=== PATIENT | female | born 1965 | race Caucasian/White ===

== ENCOUNTER 2017-01-06 12:11 | Observation (INO) ==
[2017-01-06 12:25] LABS: Basophils % 0.4 %; Eosinophils # 0.1 K/mcL (0.0-0.6); Eosinophils % 0.6 %; Hematocrit 46.8 % (35.3-44.9); Hemoglobin 16.6 g/dL (11.5-15.4); Immature Granulocytes % 0.2 % (0-4); Lymphocytes # 2.9 K/mcL (0.6-4.6); Lymphocytes % 27.5 %; Mean Corpuscular HGB Conc 35.5 g/dL (31.6-35.5); Mean Corpuscular Hemoglobin 32.8 pg (28.0-33.3); Mean Corpuscular Volume 92.5 fL (83.0-100.0); Mean Platelet Volume 10.3 fL (9.4-12.4); Monocytes # 0.6 K/mcL (0.0-1.3); Monocytes % 5.5 %; Platelet Count 293 K/mcL (140-400); Red Blood Count 5.06 M/mcL (3.82-4.97); Red Cell Distribution Width 12.9 % (11.5-14.5); Segmented Neutrophils % 65.8 %
[2017-01-06 12:35] LABS: Activated Partial Thrombo Time 30.5 Seconds (26.0-36.0); BUN/Creatinine Ratio 12 (6-26); Blood Urea Nitrogen 12 mg/dL (7-20); Calcium 10.3 mg/dL (8.6-10.8); Carbon Dioxide 26 mEq/L (19-29); Chloride 104 mEq/L (98-109); Glucose 134 mg/dL (70-99); INR 1.1; Osmolality,Calculated 294 (280-300); Potassium 2.9 mEq/L (3.5-4.5); Sodium 141 mEq/L (136-145); eGFR For African Americans > 60 (> 60); eGFR For Non-African Americans 60 (> 60)
[2017-01-06 12:36] LABS: Prothrombin Time 11.7 Seconds (9.4-12.1)
--- NOTE | 2017-01-06 12:37 | Emergency Department Note ---
Addendum entered and electronically signed by Eliu St DO 01/06/17 14 :15: Patient stable on reevaluation at this time. Her blood pressure improved spontaneously without any treatment. Awaiting admission to the hospitalist service. Original Note: Disposition Clinical Impression: Transient cerebral ischemia Qualifiers: Transient cerebral ischemia type: unspecified Qualified Code(s): G45.9 - Transient cerebral ischemic attack, unspecified Disposition: Admitted As Inpatient Condition: Good Time of Disposition: 13:12 Neuro HPI - General Chief Complaint: ED Neuro Symptoms/Deficit Stated Complaint: Neuro Time Seen by Provider: 01/06/17 12:19 Source: patient, EMS Mode of arrival: EMS Limitations: no limitations Nursing Notes Reviewed: Yes Vital Signs Reviewed: Yes - History of Present Illness HPI Narrative: 52-year-old female with history of alpha-1 antitrypsin patient presents for abrupt onset of right-sided weakness, difficulty with ambulation, patient, Vusion and dysarthria that began at 11 AM this morning. She was reportedly outside of her home with her daughter when she had abrupt onset of symptoms causing her daughter to lower her to the ground before she fell and hurt herself. Patient did not lose anxiousness. Prior to this, the patient felt normal. Family called 911 and medics report that on arrival the patient had significant right-sided facial droop and right upper extremity and lower 70 weakness. They state that 10-15 minutes prior to arrival, the patient began to have significant improvement in her symptoms so that they were nearly resolved by the time she arrived to the hospital. On arrival to the hospital, the patient notes that she is feeling much better. She states that her speech is nearly back to normal and that her weakness is much better and her arm and partially better in her leg. - Related Data Home Medications: Home Medications Medication Instructions Recorded Confirmed ALPRAZolam [Xanax 1 MG Tablet] 1 mg PO QID 04/03/16 04/03/16 Albuterol Neb [Proventil Neb] 2.5 mg IH TID 04/03/16 04/03/16 Albuterol Sulfate [Proair 2 puff IH Q4H PRN 04/03/16 04/03/16 Respiclick] Budesonide/Formoterol 160/4.5 2 puff IH BIDR 04/03/16 04/03/16 [Symbicort 160/4.5] Citalopram [CeleXA] 20 mg PO DAILY 04/03/16 04/03/16 Fluticasone Propionate Nasal 1 spray NS BID 04/03/16 04/03/16 [Flonase] Gabapentin [Neurontin] 400 mg PO QID 04/03/16 04/03/16 Levonorgestrel [Mirena] 52 mg IY AD 04/03/16 04/03/16 Loratadine/Pseudophed (12 HR) 1 tab PO DAILY 04/03/16 04/03/16 [Claritin D (12HR)] Omeprazole [PriLOSEC] 20 mg PO DAILY 04/03/16 04/03/16 Ondansetron ODT [Zofran ODT] 8 mg SL Q8HR PRN 04/03/16 04/03/16 Oxycodone HCl/Acetaminophen 1 tab PO Q6H PRN 04/03/16 04/03/16 [Percocet 5-325 mg Tablet] Previous Rx's Medication Instructions Recorded Docusate Sodium [Colace] 100 mg PO DAILY #15 capsule 07/06/16 Allergies/Adverse Reactions: Allergies Allergy/AdvReac Type Severity Reaction Status Date / Time No Known Allergies Allergy Verified 04/01/15 14:13 All systems ED: reviewed and negative except as stated. Past Medical History - Past Medical History Attestation: Yes The following information was validated with the patient. Source: patient Medical history: Reports: asthma, COPD, hypertension, other Surgical history: Reports: herniorrhaphy Psychiatric history: Reports: anxiety, depression [employer] history: Reports: bilateral tubal ligation - Social History Smoking Status: Former smoker Smokeless Tobacco Status: No Alcohol use: Reports: none Drug use: Reports: none Physical Exam - Head Head exam: atraumatic, normocephalic, normal inspection - Eye Eye exam: Present: normal appearance, PERRL, EOMI - ENT ENT exam: normal exam, normal oropharynx, mucous membranes moist - Neck Neck exam: Present: normal inspection, full ROM, trachea midline - Chest Chest inspection: Present: normal inspection, symmetric chest wall rise - Respiratory Respiratory exam: Clear to auscultation bilaterally without wheezes rales or rhonchi Cardiovascular Cardiovascular exam: Present: regular rate, normal rhythm, normal heart sounds - Abdominal Exam Abdominal exam: Present: soft, Non-Tender. Absent: tenderness, distention, guarding, rebound, rigidity - Extremities Exam Normal inspection. No edema. Normal distal pulses. - Back Exam Back exam: Present: normal inspection, full ROM. Absent: tenderness, CVA tenderness (R), CVA tenderness (L) - Neurological Exam Neurological exam: Present: alert, oriented X3, CN II-XII intact. Alert and nature of scale for further neuro exam. - Psychiatric Psychiatric exam: Present: normal affect, normal mood - Skin Skin exam: Present: warm, dry, intact, normal color - General Limitations: no limitations General appearance: alert Course - Reevaluation(s) Reevaluation #1: Patient's symptoms are nearly resolved at this time. She was seen by Dr. Mackenzie via tele-stroke. No indication for TPA given symptoms that are much much better at this time. EKG showed no ischemia or atrial fibrillation. Labs showed mild hypokalemia which we are repleting. CT of the head was negative. A shunt agreeable to stay for further evaluation of her suspected TIA. Accepted by Dr. Mendoza Time: 13:11 Vital Signs Temperature 0 F L 01/06/17 12:12 Pulse Rate 81 01/06/17 12:12 Respiratory Rate 18 01/06/17 12:12 Blood Pressure 192/107 01/06/17 12:12 O2 Sat by Pulse Oximetry 98 01/06/17 12:12 Temperature 0 F L 01/06/17 12:12 Pulse Rate 66 01/06/17 13:08 Respiratory Rate 18 01/06/17 13:50 Blood Pressure 148/95 01/06/17 13:50 O2 Sat by Pulse Oximetry 97 01/06/17 13:08 Oxygen Delivery Oxygen Delivery Room Air Neuro Symptoms/Deficit - Differential Diagnosis Likely: transient cerebral ischemia - Medical Records Medical records reviewed: Yes I reviewed the patient's medical records. - Lab Data Lab results reviewed: Yes I reviewed the patient's lab results. Result diagrams: 01/06/17 12:14 01/06/17 12:14 Lab Results 01/06/17 01/06/17 01/06/17 Range/Units 12:14 12:14 12:14 WBC 10.6 (4.3-11.1) K/mcL RBC 5.06 H (3.82-4.97) M/mcL Hgb 16.6 H (11.5-15.4) g/dL Hct 46.8 H (35.3-44.9) % MCV 92.5 (83.0-100.0) fL MCH 32.8 (28.0-33.3) pg MCHC 35.5 (31.6-35.5) g/dL RDW 12.9 (11.5-14.5) % Plt Count 293 (140-400) K/mcL MPV 10.3 (9.4-12.4) fL Immature Gran % 0.2 (0-4) % Seg Neutrophils % 65.8 % Lymphocytes % 27.5 % Monocytes % 5.5 % Eosinophils % 0.6 % Basophils % 0.4 % Neutrophils # 7.0 (1.6-8.9) K/mcL Lymphocytes # 2.9 (0.6-4.6) K/mcL Monocytes # 0.6 (0.0-1.3) K/mcL Eosinophils # 0.1 (0.0-0.6) K/mcL Basophils # 0.0 (0.0-0.2) K/mcL PT 11.7 (9.4-12.1) Seconds INR 1.1 APTT 30.5 (26.0-36.0) Seconds Sodium 141 (136-145) mEq/L Potassium 2.9 L (3.5-4.5) mEq/L Chloride 104 (98-109) mEq/L Carbon Dioxide 26 (19-29) mEq/L BUN 12 (7-20) mg/dL Creatinine 0.98 (0.57-1.11) mg/dL Est GFR ( Amer) > 60 (> 60) Est GFR (Non-Af Amer) 60 (> 60) BUN/Creatinine Ratio 12 (6-26) Glucose 134 H (70-99) mg/dL Calculated Osmolality 294 (280-300) Calcium 10.3 (8.6-10.8) mg/dL Magnesium 2.4 (1.6-2.6) mg/dL Troponin I (0-0.03) ng/mL 01/06/17 Range/Units 12:14 WBC (4.3-11.1) K/mcL RBC (3.82-4.97) M/mcL Hgb (11.5-15.4) g/dL Hct (35.3-44.9) % MCV (83.0-100.0) fL MCH (28.0-33.3) pg MCHC (31.6-35.5) g/dL RDW (11.5-14.5) % Plt Count (140-400) K/mcL MPV (9.4-12.4) fL Immature Gran % (0-4) % Seg Neutrophils % % Lymphocytes % % Monocytes % % Eosinophils % % Basophils % % Neutrophils # (1.6-8.9) K/mcL Lymphocytes # (0.6-4.6) K/mcL Monocytes # (0.0-1.3) K/mcL Eosinophils # (0.0-0.6) K/mcL Basophils # (0.0-0.2) K/mcL PT (9.4-12.1) Seconds INR APTT (26.0-36.0) Seconds Sodium (136-145) mEq/L Potassium (3.5-4.5) mEq/L Chloride (98-109) mEq/L Carbon Dioxide (19-29) mEq/L BUN (7-20) mg/dL Creatinine (0.57-1.11) mg/dL Est GFR ( Amer) (> 60) Est GFR (Non-Af Amer) (> 60) BUN/Creatinine Ratio (6-26) Glucose (70-99) mg/dL Calculated Osmolality (280-300) Calcium (8.6-10.8) mg/dL Magnesium (1.6-2.6) mg/dL Troponin I 0.00 (0-0.03) ng/mL - Radiology Data Radiology results reviewed: Yes I reviewed the patient's radiology results. - EKG Data EKG attestation: Yes I reviewed and interpreted this EKG. EKG results narrative: Normal sinus rhythm at 63 with normal axis and intervals. No ST elevation or depression. No pathologic Q waves. No significant change compared with 2014. NIH Stroke Scale - Level of Consciousness LOC: Alert - LOC Questions LOC Questions: Answers both correctly - LOC Commands LOC Commands: Performs both correctly - Best Gaze Best Gaze: Normal - Visual Visual: No visual loss - Facial Palsy Facial Palsy: Normal - Motor Arms Motor Arm-Left: No drift for 10 seconds Motor Arm-Right: No drift for 10 seconds - Motor Legs Motor Leg-Left: No drift for 5 seconds Motor Leg-Right: Some effort against gravity, limb drifts to bed - Limb Ataxia Limb Ataxia: Normal, No Ataxia - Sensory Sensory: Mild to moderate loss, "not as sharp" - Best Language Best Language: No aphasia - Dysarthria Dysarthria: Normal - Extinction and Inattention Extinction and Inattention: Normal - NIHSS Total Score NIHSS Total Score: 3 Critical Care Time Critical Care Time: Yes Total Critical Care Time: 30 Attestation: The high probability of a clinically significant, sudden or life threatening deterioration of the [neuro] system(s) required my full and direct attention, intervention and personal management. The aggregate critical care time was [30] minutes. This time is in addition to time spent performing reported procedures but includes the following: [X] Data Review and interpretation [X] Patient assessment and monitoring of vital signs [X] Documentation [X] Medication orders and management Attestation Statement - Attestation Attestation: I personally interviewed and examined this patient and my medical decision- making was reviewed with the Ed Resident Physician, Dr. St. I agree with the documented findings, disposition and treatment plan as described except to the extent set forth below. Patient is a 52-year-old white female with history of one antitrypsin deficiency who presents to the emergency department by EMS as a stroke alert. Patient reportedly had acute right-sided weakness and intangible speech with the time of onset of 11 AM paramedics. Patient was with her daughter who was with her when medics arrived medics report that she could not move her right side and had no intelligible speech at the time they arrived on the scene and started to slowly improve after approximately 15 minutes. On arrival here patient had significantly improved from her time of onset and she was able to fully move her right upper and lower extremities and had no evidence of facial droop, and had clear speech. Patient was complaining of residual right-sided numbness and clumsiness to her right side. Patient has never had any prior CVA or TIA like symptoms in the past. Patient had no headaches at the time of onset of symptoms. No history of recent trauma. Her clinic was called and patient was sent emergently to CT scan following initial assessment. Following initial assessment with almost complete resolution of symptoms patient is not a candidate for TPA. CT head was called by radiology as negative study. Upon return from CT patient had complete resolution of her symptoms was resting comfortably with stable vital signs and significant improvement of her blood pressure. Patient with low potassium on her lab work we are replacing this orally at this time. Neurologic exams over time have remained stable. Patient will be admitted to the medicine service for further evaluation of TIA. The high probability of a clinically significant, sudden or life threatening deterioration of the [neurologic] system(s) required my full and direct attention, intervention and personal management. The aggregate critical care time was [30] minutes. This time is in addition to time spent performing reported procedures but includes the following: X] Data Review and interpretation [X] Patient assessment and monitoring of vital signs [X] Documentation [X] Medication orders and management
[2017-01-06 12:58] LABS: Magnesium 2.4 mg/dL (1.6-2.6)
[2017-01-06] MEDS ORDERED: Aspirin 81 MG TAB.CHEW PO ONE (12:59)
[2017-01-06] MEDS ORDERED: Naloxone 0.4 MG/ML INJ IVP PRN (14:12)
[2017-01-06] MEDS ORDERED: Acetaminophen 325 MG TABLET PO PRN (14:12)
--- NOTE | 2017-01-06 14:16 | Internal Med History&Physical ---
Date of Encounter: 01/06/17 Time of Encounter: 14:00 Assessment and Plan (1) Transient cerebral ischemia Current visit: Yes Status: Acute Patient with right-sided weakness likely related to acute ischemic stroke versus TIA. Will place patient under observation. Aspirin, statin. Check A1c , TSH. Will get MRI of the brain. Carotid Dopplers. PTOT evaluation. Qualifiers: Transient cerebral ischemia type: other Qualified Code(s): G45.8 - Other transient cerebral ischemic attacks and related syndromes (2) Alxwt-[id number] deficiency Current visit: No Status: Chronic Continue outpatient management per pulmonology recommendations. (3) Chronic obstructive pulmonary disease Current visit: Yes Status: Chronic Not in acute exacerbation. We will use bronchodilator nebs and O2 supplementation as needed. Qualifiers: COPD type: emphysema Emphysema type: panlobular Qualified Code(s): J43.1 - Panlobular emphysema Internal Medicine - H&P: HPI Chief complaint: Right-sided weakness Admitted From: Emergency Dept Plans for Post Hospital Care: Home History of present illness: Ms. Lubin is a 52 year old female patient with a history of alpha-1 antitrypsin deficiency, COPD who presented to the ER with complaints of right- sided weakness that began at 11 AM this morning. Patient had a mild headache last night which improved and then she began to have a headache again this morning prior to the onset of her symptoms. She describes right-sided upper and lower extremity weakness that began suddenly. No bowel or bladder incontinence. No seizure-like activity. No lightheadedness. This has already started to improve and she has regained function of most of her right upper extremity while her right lower extremity seems to be weaker still. She had trouble ambulating as a result of this weakness. She also felt slight weakness in her left leg but that has improved now. No speech difficulty. No vision changes. 2 years back she had episodes of syncope twice that spontaneously resolved with no clear abnormalities identified. Past Med Surg Social Fam HX - Past Medical History Attestation: Yes The following information was validated with the patient. Source: patient Medical history: asthma, COPD, hypertension, other Psychiatric history: anxiety, depression - Past Surgical History Surgical History: herniorrhaphy - Social History Smoking Status: Former smoker Smokeless Tobacco Status: No Alcohol use: none Drug use: none Internal Medicine - H&P: Meds ALPRAZolam [Xanax 1 MG Tablet] 1 mg PO QID 04/03/16 [History] Albuterol Neb [Proventil Neb] 2.5 mg IH TID 04/03/16 [History] Albuterol Sulfate [Proair Respiclick] 2 puff IH Q4H PRN 04/03/16 [History] Budesonide/Formoterol 160/4.5 [Symbicort 160/4.5] 2 puff IH BIDR 04/03/16 [ History] Citalopram [CeleXA] 20 mg PO DAILY 04/03/16 [History] Fluticasone Propionate Nasal [Flonase] 1 spray NS BID 04/03/16 [History] Gabapentin [Neurontin] 400 mg PO QID 04/03/16 [History] Levonorgestrel [Mirena] 52 mg IY AD 04/03/16 [History] Loratadine/Pseudophed (12 HR) [Claritin D (12HR)] 1 tab PO DAILY 04/03/16 [ History] Omeprazole [PriLOSEC] 20 mg PO DAILY 04/03/16 [History] Ondansetron ODT [Zofran ODT] 8 mg SL Q8HR PRN 04/03/16 [History] Oxycodone HCl/Acetaminophen [Percocet 5-325 mg Tablet] 1 tab PO Q6H PRN [History] Docusate Sodium [Colace] 100 mg PO DAILY #15 capsule 07/06/16 [Rx] Allergies No Known Allergies Allergy (Verified 04/01/15 14:13) All Systems PM: A 10-system review of systems was performed and is negative for pertinent findings except as documented above in the HPI. - Constitutional Constitutional: no chills, no fever(s), no night sweats - EENT Eyes: no change in vision, no discharge, no pain, no photophobia Ears: no ear discharge, no ear pain, no tinnitus Nose, mouth and throat: no dysphagia, no nasal discharge, no neck pain, no sore throat - Cardiovascular Cardiovascular ROS IM: no chest pain, no diaphoresis, no dyspnea, no lightheadedness, no palpitations, no syncope - Respiratory Respiratory: no cough, no dyspnea, no wheezing, no excessive phlegm production - Gastrointestinal Gastrointestinal: no abdominal pain, no diarrhea, no hematemesis, no hematochezia, no melena, no nausea, no vomiting - Genitourinary Genitourinary: no change in urinary stream, no dysuria, no flank pain, no hematuria - Musculoskeletal Musculoskeletal ROS IM: no numbness, no tingling - Integumentary Integumentary IM: no rash, no unusual bruising - Neurological Neurological ROS: focal weakness (Right upper and lower extremity), no confusion , no convulsions, no numbness, no tingling, no tremor(s) - Hematologic/Lymphatic Hematologic/Lymphatic: no easy bruising - Constitutional Vitals: Temp Pulse Resp BP Pulse Ox 0 F L 66 18 148/95 97 01/06/17 12:12 01/06/17 13:08 01/06/17 13:50 01/06/17 13:50 01/06/17 13:08 General appearance: Present: cooperative, mild distress, A&O X 3, answers questions appropriately - Neck Neck exam general surgery: Present: supple, trachea midline. Absent: lymphadenopathy - Respiratory Respiratory exam: Present: CTAB. Absent: accessory muscle use, rales, rhonchi, wheezes - Cardiovascular Cardiovascular exam: Present: RRR, +S1, +S2. Absent: diastolic murmur, gallop, rubs, systolic murmur - GI/Abdominal GI/Abdominal exam: Present: normal bowel sounds, soft, no peritoneal signs. Absent: distended, tenderness - Extremities Exam Extremities exam: Present: warm, radial pulses palpable and symetrical. Absent : calf tenderness, cyanotic, pedal edema - Neurological Exam Neurological exam: Present: alert, CN II-XII intact, oriented X3. Absent: facial droop, speech deficit Additional comments: Strength 4/5 in the right upper extremity, 3+ in the right lower extremity. Strength normal in other extremities. - Skin Skin exam: Present: dry, intact Internal Med - H&P Results - Labs CBC & Chem 7: 01/06/17 12:14 01/06/17 12:14 - Attending Attestation This document has been at least partially created by [employer] recognition technology by Dr. Mendoza. Errors in grammar, wording or other phrases may exist. If errors are found after the documentation is signed, they will be addressed individually in the addendum section of this document when appropriate.
[2017-01-06] MEDS: *HR* Heparin 5,000 UNIT/ML VIAL SQ SCH (17:43)
[2017-01-06] MEDS: Gabapentin 300 MG CAPSULE PO SCH (20:56)
[2017-01-06] MEDS: *HR* OxyCODONE/APAP 5/325 TABLET PO SCH (20:56)
[2017-01-06] MEDS: ALPRAZolam 1 MG TABLET PO SCH (20:56)
[2017-01-06] MEDS: Fluticasone Propionate Nasal 50 MCG/SPRAY BOTTLE NS SCH (21:10)
[2017-01-06] MEDS: Budesonide/Formoterol 160/4.5 MDI IH SCH (22:21)
[2017-01-07 03:33] LABS: Chol/HDL Ratio 4.5 (0-4.9)
[2017-01-07 03:54] LABS: Thyroid Stimulating Hormone 0.664 mcIU/mL (0.350-4.840)
[2017-01-07] MEDS: *HR* Heparin 5,000 UNIT/ML VIAL SQ SCH ×2 (05:31→17:13)
[2017-01-07] MEDS: ALPRAZolam 1 MG TABLET PO SCH ×4 (05:31→20:34)
[2017-01-07] MEDS: Gabapentin 300 MG CAPSULE PO SCH ×4 (10:09→20:34)
--- NOTE | 2017-01-07 10:12 | ECHO - Doppler Report ---
Echo with Saline Contrast Name: Miguel Lubin Date of Study: 01/07/2017 Date: 1965 Ht: 64.0 in Medical Record#: [id number] Age: 52 Wt: 136.0 lb Gender: Female BSA: 1.66 Order #: [id number] Location: [facility] Room #: [id number] Reading Physician: Jackson Mcdaniel DO, ARLETH ODELL Pitch Worker: Jose Miguel Burciaga RDCS Ordering Physician: Nancy Mendoza MD Primary Physician: None Indications: Transient Ischemic Attack Impressions: LVEF 60-65%. Normal LV chamber size, wall thickness and function. Mild left ventricular diastolic dysfunction. Normal right ventricular structure and function. No evidence of PFO with agitated saline contrast. No evidence of pulmonary hypertension. No significant valvular dysfunction. Left Ventricular Wall Motion: Rest Echo Findings All wall segments showed normal motion. Findings: Study Quality * Technically adequate exam. ECG Findings * Sinus bradycardia. Left Ventricle * LVEF 60-65%. * Normal LV chamber size, wall thickness and function. * Mild left ventricular diastolic dysfunction. Right Ventricle * Normal right ventricular structure and function. Left Atrium * Mildly dilated left atrium. Right Atrium * Normal right atrial size. Interatrial Septum * No evidence of PFO with agitated saline contrast. Aortic Valve * Trileaflet aortic valve with normal function. * No aortic regurgitation. * No aortic stenosis. Mitral Valve * Mildly thickened mitral valve leaflets. * Trace mitral regurgitation. * No mitral stenosis. Tricuspid Valve * Normal tricuspid valve structure and function. * Trace tricuspid regurgitation. * No evidence of pulmonary hypertension. Pulmonic Valve * Pulmonic valve is not well visualized. * No pulmonic regurgitation. Aorta * Normally sized aortic root. Pericardium * There is a trivial pericardial effusion present. IVC * Normal IVC dimensions and inspiratory collapse. Pulmonary Artery * Normal visualized portions of the main pulmonary artery. History Rheumatic Fever Contrast: Agitated saline 2 ml. Measurements: BP: 120/ 85 2D Normal Values RVIDd: 2.50 cm <2.7 cm IVSd: 1.00 cm 0.6 - 1.0 cm LVIDd: 4.90 cm 3.7 - 5.6 cm LVPWd: .90 cm 0.6 - 1.1 cm LVIDs: 3.30 cm 1.5 - 3.6 cm AO: 3.10 cm < 4.0 cm LA: 3.00 cm 2.0 - 4.0cm %FS: 32.70 cm >25 % LA volume: 32 Mitral Valve Peak E:.74 m/sec Peak A:.81 m/sec E/A Ratio:0.9 Peak E' Lat Nathaniel:9.46 cm/s Peak E' Med Nathaniel:5.36 cm/s E/E' Lat Ratio:7.8 E/E' Med Ratio:13.7 Tricuspid Valve TV Regurg Peak Grad: 19.00mmHg TV Regurg Peak Nathaniel: 2.19m/sec Updated by Jackson Mcdaniel DO, CASS, ARLETH, NIKIA on 01/07/2017 10:07:24 AM electronically signed on 01/07/2017 10:08:04 AM with status of Final Wall Motion Murphy: 1=Normal, 2=Hypokinesis, 3=Akinesis, 4=Dyskinesis, 5=Aneurysmal, 6=Hyperkinetic, X=Not Visualized (Blank)=Missing
[2017-01-07] MEDS: Budesonide/Formoterol 160/4.5 MDI IH SCH ×2 (11:08→20:24)
--- NOTE | 2017-01-07 11:17 | Carotid Imaging Report ---
Carotid Duplex Patient Name:Miguel Lubin Order Number:[id number] Procedure Date:01/07/2017 Date:1965Age:52 yrs Gender:Female Rt.BP:120 / 85 mmHgHeart Rate: Location:[facility] Room #: [id number] Account Liaison Hospice:Jose Miguel Burciaga, [facility] Referring MD:Nancy Mendoza MD Reading MD:Dominic Rao MD , FACS Primary Indications:Occlusion and stenosis of carotid artery without mention of cerebral infarction Risk Factors Yes/No Smoking Previous Impressions: Findings: Bilateral carotid system are essentially normal. Findings Carotid Duplex: Tsang scale imaging combined with Doppler flow analysis suggests normal findings bilaterally. Right: The right proximal common carotid artery has a PSV of 101 cm/s and a EDV of 26 cm/s. The right mid common carotid artery has a PSV of 89 cm/s and a EDV of 21 cm/s. The right distal common carotid artery has a PSV of 79 cm/s and a EDV of 23 cm/s. The right bifurcation has a PSV of 72 cm/s and a EDV of 23 cm/s. The right proximal internal carotid artery has a PSV of 75 cm/s and a EDV of 23 cm/s. The right mid internal carotid artery has a PSV of 90 cm/s and a EDV of 35 cm/s. The right distal internal carotid artery has a PSV of 84 cm/s and a EDV of 29 cm/s. The right eca has a PSV of 105 cm/s and a EDV of 24 cm/s. The right vertebral artery has a PSV of 57 cm/s and a EDV of 16 cm/s. Left: The left proximal common carotid artery has a PSV of 105 cm/s and a EDV of 25 cm/s. The left mid common carotid artery has a PSV of 107 cm/s and a EDV of 33 cm/s. The left distal common carotid artery has a PSV of 91 cm/s and a EDV of 31 cm/s. The left bifurcation has a PSV of 71 cm/s and a EDV of 26 cm/s. The left proximal internal carotid artery has a PSV of 81 cm/s and a EDV of 30 cm/s. The left mid internal carotid artery has a PSV of 78 cm/s and a EDV of 35 cm/s. The left distal internal carotid artery has a PSV of 64 cm/s and a EDV of 26 cm/s. The left eca has a PSV of 88 cm/s and a EDV of 16 cm/s. The left vertebral artery has a PSV of 51 cm/s and a EDV of 17 cm/s. Prior Study: No prior study available for comparison. Carotid Results Right PSV EDV Assessment Proximal CCA 101 26 Mid CCA 89 21 Distal CCA 79 23 Bifurcation 72 23 Proximal ICA 75 23 Mid ICA 90 35 Distal ICA 84 29 ECA 105 24 Vertebral Artery 57 16 Left PSV EDV Assessment Proximal CCA 105 25 Mid CCA 107 33 Distal CCA 91 31 Bifurcation 71 26 Proximal ICA 81 30 Mid ICA 78 35 Distal ICA 64 26 ECA 88 16 Vertebral Artery 51 17 Ratio's Right ICA/CCA Ratio: 1.01 ICA/CCA Values: 90/89 Left ICA/CCA Ratio: 0.76 ICA/CCA Values: 81/107 Updated by Dominic Rao MD, FACS on 01/07/2017 11:14:08 AM Dominic Rao MD electronically signed on 01/07/2017 11:14:40 AM with status of Final
[2017-01-07 11:54] LABS: BUN/Creatinine Ratio 11 (6-26); Blood Urea Nitrogen 10 mg/dL (7-20); Calcium 9.3 mg/dL (8.6-10.8); Carbon Dioxide 24 mEq/L (19-29); Chloride 105 mEq/L (98-109); Glucose 102 mg/dL (70-99); Osmolality,Calculated 287 (280-300); Potassium 3.3 mEq/L (3.5-4.5); Sodium 139 mEq/L (136-145); eGFR For African Americans > 60 (> 60); eGFR For Non-African Americans > 60 (> 60)
--- NOTE | 2017-01-07 12:37 | Neurology - Consult Note ---
Date of Encounter: 01/07/17 Time of Encounter: 12:29 Assessment and Plan (1) Transient cerebral ischemia Current Visit: Yes Status: Acute Stroke versus seizures. The improving weakness may be suggestive of a stroke, MRI brain was read as negative. A DWI positive lesion was noted at left periventricular area, but unclear if it had an ADC correlate. Given the stereotypy of events, seizure followed by Eduardo's paralysis is possible, however , the sensory changes may not have been expected. Needs outpatient neurology follow-up with DR. Glez. Need outpatient EEG and possibly repeat brain MRI. Qualifiers: Transient cerebral ischemia type: other Qualified Code(s): G45.8 - Other transient cerebral ischemic attacks and related syndromes (2) Cervical stenosis of spinal canal Current Visit: Yes Status: Acute (3) Cervical stenosis of spine Current Visit: Yes Status: Acute The spinal cord sensory level at C6-7, clonus on the right foot (weak limb) are suggestive of cervical myelopathy. Needs cervcial MRI spine imaging. However, this will not explain the loss of consciousness episode. History of Present Illness Chief complaint: passing out and right sided weakness HPI: Ms. Lubin is a 52 year old female with history of alpha-1 antitrypsin deficiency, with an episode of passing out, followed by right sided weakness. She had a headache prior to the loss of consciousness event. She had urinary and fecal incontinence with this episode. after the episode, she felt very sleepy. When she "came out", she had difficulty understanding other people's conversations. She states that she has had 3 prior episodes like this with collapse and weakness, but this was the first time for incontinence. She states that her right leg weakness in getting better and the tingling that came with it is also getting better. She is able to walk now, but still has to drag her right foot. Her mentation is back to normal now, per her report. Her mother acknowledges that as well. She has no other complaints. She wants to go home. Past Med Surg Social Fam HX - Past Medical History Medical history: asthma, COPD, DVT, hypertension, other Psychiatric history: anxiety, depression - Past Surgical History Surgical History: herniorrhaphy - Social History Smoking Status: Current every day smoker Packs per day: 1 Smokeless Tobacco Status: No Alcohol use: none Drug use: none - Family History Mother Living Status: Still Living Hx Family Cardiac Disorders: Yes (HTN) Father Living Status: Still Living Hx Family Cardiac Disorders: Yes (HTN) Hx Family Neurologic Disorders: Yes (STROKE) Medications and Allergies ALPRAZolam [Xanax 1 MG Tablet] 1 mg PO QID 04/03/16 [History] Albuterol Neb [Proventil Neb] 2.5 mg IH TID 04/03/16 [History] Albuterol Sulfate [Proair Respiclick] 2 puff IH Q4H PRN 04/03/16 [History] Budesonide/Formoterol 160/4.5 [Symbicort 160/4.5] 2 puff IH BID 04/03/16 [ History] Citalopram [CeleXA] 40 mg PO DAILY 04/03/16 [History] Fluticasone Propionate Nasal [Flonase] 50 mcg NS BID 04/03/16 [History] Loratadine/Pseudophed (12 HR) [Claritin D (12HR)] 1 tab PO DAILY 04/03/16 [ History] Omeprazole [PriLOSEC] 20 mg PO DAILY 04/03/16 [History] Oxycodone HCl/Acetaminophen [Percocet 5-325 mg Tablet] 1 tab PO TID 04/03/16 [ History] Docusate Sodium [Colace] 100 mg PO DAILY #15 capsule 07/06/16 [Rx] Skdrc-5-Nmyuwmbdns Inhibitor [Zemaira] 1,000 mg IV QWEEK 01/06/17 [History] Gabapentin [Neurontin] 300 mg PO QID 01/06/17 [History] Lisinopril [Zestril] 10 mg PO DAILY 01/06/17 [History] Metoclopramide [Reglan] 10 mg PO TID 01/06/17 [History] Allergies No Known Allergies Allergy (Verified 04/01/15 14:13) All Systems: A 10-system review of systems was performed and is negative for pertinent findings except as documented above in the HPI. - Constitutional Constitutional ROS IM: as per HPI - Nose, Mouth, Throat Nose, mouth and throat: as per HPI - Cardiovascular Cardiovascular ROS IM: as per HPI, no chest pain - Respiratory Respiratory IM: no dyspnea - Gastrointestinal Gastrointestinal: no abdominal pain - Integumentary Integumentary IM: new lesions, no rash - Neurological Neurological ROS: tingling Physical Examination - Vital Signs Vital Signs: Initial Vital Signs Temp Pulse Resp BP Pulse Ox 0 F L 81 18 192/107 98 01/06/17 12:12 01/06/17 12:12 01/06/17 12:12 01/06/17 12:12 01/06/17 12:12 Vital Signs - 24 hr 01/06/17 13:08 01/06/17 13:50 01/06/17 14:41 Temperature Pulse Rate 66 78 Respiratory Rate 16 18 18 Blood Pressure 146/77 148/95 155/97 O2 Sat by Pulse Oximetry 97 95 01/06/17 21:00 01/06/17 22:21 01/07/17 00:00 Temperature 98.3 F Pulse Rate 70 61 Respiratory Rate 18 16 16 Blood Pressure 167/85 113/66 O2 Sat by Pulse Oximetry 97 95 94 01/07/17 02:00 01/07/17 04:00 01/07/17 06:40 Temperature 97.6 F 97.7 F Pulse Rate 51 54 Respiratory Rate 16 16 Blood Pressure 117/82 120/85 O2 Sat by Pulse Oximetry 94 98 01/07/17 11:09 01/07/17 12:28 Temperature 97.5 F L Pulse Rate 70 Respiratory Rate 16 18 Blood Pressure 129/76 O2 Sat by Pulse Oximetry 97 93 - Constitutional General appearance: other (Heart is with regular rate and rhythm. Lungs clear to auscultation. Abdomen is soft, benign. skin with no rash.) - Neurologic Sensorimotor examination: hemiparesis (right lower extremity) Motor examination - right side: 4/5: deltoids, wrist extension, parent partner, hip flexors, tibialis Anterior, quadriceps, toe extension (EHL), plantarflexion, 5/5 : biceps, triceps, wrist flexion Motor examination - left side: 5/5: deltoids, biceps, triceps, wrist flexion, wrist extension, hip flexors, parent partner, quadriceps, tibialis Anterior, toe extension (EHL), plantarflexion Detailed sensory examination: other (paresthesias reported on right arm, truck and leg. Spinal cord sensory level at C6-7) Reflex and gait examination: other (pectoralis reflex present on the left) Reflexes: Biceps: 1+, Triceps: 3+ (asymmetrically hyperreflexia on the left), Brachioradialis: 3+ (asymmetrically hyperreflexia on the left), Patella: 2+, Achilles: 4+ (clonus on the right) Mental Status Examination: awake, alert, oriented to person, oriented to place, oriented to time, follows commands appropriately, answers questions appropriately, no agnosia, no aphasia, no aproxia, lucid Cranial nerve examination: PERRL, EOMI, visual hart intact, corneal reflexes brisk symmetrically, sensory to face intact, mastication intact, no facial asymmetry is present, no dysarthria, hearing is intact symmetrically, soft palate elevates bilaterally upon phonation, gag reflex intact, flexes SCM and trapezius muscles symmetrically with full power, tongue protrudes midline, no atrophy or facial fasiculations present Fundoscopic: papilledema: Bilateral (None) Ataxia: right upper extremity (due to weakness) Results - Laboratory Findings CBC and BMP: 01/06/17 12:14 01/07/17 11:14 Abnormal lab findings: Abnormal lab results RBC 5.06 M/mcL (3.82-4.97) H 01/06/17 12:14 Hgb 16.6 g/dL (11.5-15.4) H 01/06/17 12:14 Hct 46.8 % (35.3-44.9) H 01/06/17 12:14 Potassium 3.3 mEq/L (3.5-4.5) L 01/07/17 11:14 Glucose 102 mg/dL (70-99) H 01/07/17 11:14 HDL Cholesterol 25 mg/dL (40-59) L 01/07/17 02:54 - Diagnostic Findings Additional findings: Head CT 01/06/17 12:22 IMPRESSION: No acute intracranial abnormality. Critical results were called by Dr. Bertrand Calvin MD to Eliu Shantell [place] on 01/06/2017 at 12:37. D/ / Bertrand Calvin MD / Bertrand Calvin MD Interpreting Provider: Bertrand Calvin MD Brain MRI 01/06/17 14:13 IMPRESSION: No acute intracranial abnormality. D/ / John Saunders MD / John Saunders MD Interpreting Provider: John Saunders MD Consult Discharge Plan - Plan Referrals: Janelle Galan, [employer] [Primary Care Provider] -
--- NOTE | 2017-01-07 12:48 | Electrocardiograph Report ---
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
--- NOTE | 2017-01-07 14:43 | Internal Med Progress Note ---
Date of Encounter: 01/07/17 Time of Encounter: 12:20 - Assessment and plan (1) Transient cerebral ischemia Current Visit: Yes Status: Acute Assessment and plan: Appreciate neurology input. Will MRI C spine. Continue ASA and outpatient follow up. Qualifiers: Transient cerebral ischemia type: other Qualified Code(s): G45.8 - Other transient cerebral ischemic attacks and related syndromes (2) Pmfah-6-giqiunrqeyp deficiency Current Visit: No Status: Chronic (3) Chronic obstructive pulmonary disease Current Visit: Yes Status: Chronic Qualifiers: COPD type: emphysema Emphysema type: panlobular Qualified Code(s): J43.1 - Panlobular emphysema (4) Cervical stenosis of spine Current Visit: Yes Status: Acute Assessment and plan: MRI today. (5) Tobacco abuse Current Visit: Yes Status: Chronic Assessment and plan: Cessation counselling - Subjective Interval history: Ms. Lubin is currently in observation for R side weakness and concern for CVA. She is moderate to high risk due to potential for worsening neurologic status. Ms. Lubin is having improvement in her R side though symptoms still present. No other symptoms. Tolerating eating. No fever or chills. No cough. Appreciate neurology input. - Constitutional Vitals: Temp Pulse Resp BP Pulse Ox 97.5 F L 70 18 129/76 93 01/07/17 12:28 01/07/17 12:28 01/07/17 12:28 01/07/17 12:28 01/07/17 12:28 General appearance: Present: cooperative, mild distress, A&O X 3, answers questions appropriately - Head Head exam: Present: normocephalic - Eye Eye exam: Present: conjuntiva pink - ENT ENT exam: Present: mucous membranes moist - Respiratory Respiratory exam: Present: decreased breath sounds, CTAB - Cardiovascular Cardiovascular exam: Present: RRR. Absent: tachycardia - GI/Abdominal GI/Abdominal exam: Present: soft. Absent: tenderness - Extremities Exam Extremities exam: Present: warm. Absent: pedal edema, tenderness - Neurological Exam Neurological exam: Present: alert, oriented X3 Additional comments: R upper and lower extremities weaker than L and clonus in R leg. - Skin Skin exam: Present: warm. Absent: rash Internal Medicine: Result - Labs CBC & Chem 7: 01/06/17 12:14 01/07/17 11:14 Labs: BMP 01/07/17 11:14 Sodium 139 Potassium 3.3 L Chloride 105 Carbon Dioxide 24 BUN 10 Creatinine 0.94 Glucose 102 H Calcium 9.3 - ABG Interpretation ABG results: PT/INR, D-dimer PT 11.7 Seconds (9.4-12.1) 01/06/17 12:14 - Impressions Impressions Brain MRI 01/06/17 14:13 IMPRESSION: No acute intracranial abnormality. D/ / John Saunders MD / John Saunders MD Interpreting Provider: John Saunders MD Consult Discharge Plan - Plan Referrals: Janelle Galan CNP [Primary Care Provider] -
[2017-01-07] MEDS: *HR* OxyCODONE/APAP 5/325 TABLET PO SCH ×3 (16:01→22:13)
[2017-01-07] MEDS: Fluticasone Propionate Nasal 50 MCG/SPRAY BOTTLE NS SCH ×2 (16:13→22:23)
[2017-01-07] MEDS: Ipratropium/Albuterol Neb 3 ML IH PRN (21:03)
[2017-01-08] MEDS: *HR* Heparin 5,000 UNIT/ML VIAL SQ SCH (05:57)
[2017-01-08] MEDS: Ipratropium/Albuterol Neb 3 ML IH PRN (06:34)
[2017-01-08 07:51] VITALS: BP 125/64
[2017-01-08] MEDS: ALPRAZolam 1 MG TABLET PO SCH (09:15)
[2017-01-08] MEDS: Gabapentin 300 MG CAPSULE PO SCH (09:17)
[2017-01-08] MEDS: Fluticasone Propionate Nasal 50 MCG/SPRAY BOTTLE NS SCH (09:17)
[2017-01-08] MEDS: *HR* OxyCODONE/APAP 5/325 TABLET PO SCH (09:17)
--- NOTE | 2017-01-08 09:47 | Discharge Summary ---
<Vladimir Bansal - Last Filed: 01/08/17 11:40> Date of Encounter: 01/08/17 Time of Encounter: 09:15 - Discharge Diagnosis (1) Transient cerebral ischemia Status: Acute Comments: Stroke versus seizure. Seen by neurology, plan for outpatient follow up. Qualifiers: Transient cerebral ischemia type: other Qualified Code(s): G45.8 - Other transient cerebral ischemic attacks and related syndromes (2) Cervical stenosis of spinal canal Status: Acute Comments: Referral to ortho as outpatient. (3) Chronic obstructive pulmonary disease Status: Chronic Comments: Follow up with PCP, consider repeat sleep study. Qualifiers: COPD type: emphysema Emphysema type: panlobular Qualified Code(s): J43.1 - Panlobular emphysema (4) Oncbg-1-gdxroilkbck deficiency Status: Chronic (5) Tobacco abuse Status: Chronic - Discharge Medications Prescriptions: Aspirin 81 mg PO DAILY 30 Days Home Medications: ALPRAZolam [Xanax 1 MG Tablet] 1 mg PO QID 04/03/16 [History] Albuterol Neb [Proventil Neb] 2.5 mg IH TID 04/03/16 [History] Albuterol Sulfate [Proair Respiclick] 2 puff IH Q4H PRN 04/03/16 [History] Budesonide/Formoterol 160/4.5 [Symbicort 160/4.5] 2 puff IH BID 04/03/16 [ History] Citalopram [CeleXA] 40 mg PO DAILY 04/03/16 [History] Fluticasone Propionate Nasal [Flonase] 50 mcg NS BID 04/03/16 [History] Loratadine/Pseudophed (12 HR) [Claritin D (12HR)] 1 tab PO DAILY 04/03/16 [ History] Omeprazole [PriLOSEC] 20 mg PO DAILY 04/03/16 [History] Oxycodone HCl/Acetaminophen [Percocet 5-325 mg Tablet] 1 tab PO TID 04/03/16 [ History] Docusate Sodium [Colace] 100 mg PO DAILY #15 capsule 07/06/16 [Rx] Bgrer-7-Ocvthnddhg Inhibitor [Zemaira] 1,000 mg IV QWEEK 01/06/17 [History] Gabapentin [Neurontin] 300 mg PO QID 01/06/17 [History] Lisinopril [Zestril] 10 mg PO DAILY 01/06/17 [History] Metoclopramide [Reglan] 10 mg PO TID 01/06/17 [History] Aspirin 81 mg PO DAILY 30 Days 01/08/17 [Rx] Allergies/Adverse Reactions: Allergies No Known Allergies Allergy (Verified 04/01/15 14:13) Procedures/tests Complete & Pending: Procedures Performed prior 72 hours Category Date Time Status MR cervical spine wo con [MR] Routine MRI 01/08/17 08:23 Draft MR head/brain wo con [MR] Stat MRI 01/06/17 14:13 Completed ECG 12 lead ECG [ECG] Routine Y 01/06/17 12:49 Completed EV carotid duplex imaging BI Stat Y 01/06/17 14:13 Completed EV echocardiogram Stat Y 01/06/17 14:13 Completed Date of admission: 01/06/17 13:24 Primary care physician: Janelle Galan CNP Consults: 01/06/17 14:20 Consult to Occupational Therapy [CONS] Routine Comment: Evaluate, develop and implement POC Reason for Consult: Right-sided weakness Consult to Physical Therapy [CONS] Routine Comment: Evaluate, develop and implement POC Reason for Consult: Right-sided weakness 01/07/17 11:08 Consult to Neurology [CONS] Routine Consulting Provider: [facility] Reason for Consult: R side weakness, MRI negative Call Completed: Yes Discharging clinician: Igor Vazquez Anticipated date of discharge: 01/08/17 - Patient Status Disposition: Home, Self-Care Condition: Good Functional capacity at discharge: independent ambulation Overall status at discharge: patient is progressing back to baseline - Discharge Instructions Instructions: Chronic Obstructive Pulmonary Disease (DC) Follow Up With: Janelle Galan CNP [Primary Care Provider] - Luis Dunlap MD [Partnered Physician] - Jose Luis Etienne Jr, MD [Partnered Physician] - - Diet and Activity Activity: as per physical therapy Diet: regular diet Interval History: Patient states she feels well today and wants to go home. She states that wearing oxygen make her feel better, she denies respiratory distress. She states she still have some numbness and weakness on her entire right side. Patient is agreeable to close follow up with neurology. Hospital course: Ms. Lubin is a 52 year old female with history of alpha-1 antitrypsin deficiency that was admitted for an episode of passing out, followed by right sided weakness. She reported a headache prior to the loss of consciousness event. She reported urinary and fecal incontinence with the episode and felt very sleepy after awaking, with difficulty understanding other people's conversations. Mentation has returned to baseline, with improvement of Right sided numbness, tingling, weakness; but not resolution. CT head: No acute intracranial abnormality. MR brain: No acute intracranial abnormality. MR cervical spine: mild stenosis, disc and osteophytes narrowing foramina at several levels. Questionable signal abnormalities, consider repeat study. Carotid Duplex: normal Echo: LEVF 60-65%, Mild LVDD She was seen by neurology, Dr. Dunlap, with recommendation of aspirin, physical therapy, and outpatient follow up. Possible EEG and repeat MR of brain. Outpatient referral to Orthopedics for myelopathy. Discussion of inpatient vs outpatient physical therapy, will complete referral as needed. Time spent discussing smoking cessation with patient: 3 to 10 minutes - Time Spent with Patient Total time spent providing and/or coordinating discharge services: Less than 30 minutes - Constitutional Vitals: Temp Pulse Resp BP Pulse Ox 97.9 F 59 16 125/64 96 01/08/17 07:50 01/08/17 07:50 01/08/17 07:50 01/08/17 07:50 01/08/17 08:52 General appearance: Present: cooperative, A&O X 3, no acute distress, answers questions appropriately - Head Head exam: Present: atraumatic, normocephalic - Eye Eye exam: Present: EOMI, conjuntiva pink - ENT ENT exam: Present: mucous membranes moist - Respiratory Respiratory exam: Present: wheezes - Cardiovascular Cardiovascular exam: Present: RRR - GI/Abdominal GI/Abdominal exam: Present: normal bowel sounds, soft. Absent: distended, guarding - Extremities Exam Extremities exam: Absent: pedal edema, tenderness - Neurological Exam Additional comments: Right sided weakness compared to left. - Skin Skin exam: Present: normal color, warm. Absent: cyanosis, rash <Igor Vazquez - Last Filed: 01/08/17 16:57> Date of Encounter: 01/08/17 - Discharge Diagnosis (1) CVA (cerebral vascular accident) Priority: Primary Status: Acute Qualifiers: CVA mechanism: thrombosis Precerebral and cerebral artery: middle cerebral artery Laterality of affected vessel: left Qualified Code(s): I63.312 - Cerebral infarction due to thrombosis of left middle cerebral artery (2) Cervical stenosis of spine Priority: Secondary Status: Acute (3) Foot drop, right Priority: Secondary Status: Chronic (4) Chronic obstructive pulmonary disease Priority: Secondary Status: Chronic Qualifiers: COPD type: emphysema Emphysema type: panlobular Qualified Code(s): J43.1 - Panlobular emphysema (5) Vhkcj-2-yhczmznxyrs deficiency Priority: Secondary Status: Chronic (6) Tobacco abuse Priority: Secondary Status: Chronic Procedures/tests Complete & Pending: Procedures Performed prior 72 hours Category Date Time Status MR cervical spine wo con [MR] Routine MRI 01/08/17 08:23 Draft MR head/brain wo con [MR] Stat MRI 01/06/17 14:13 Completed ECG 12 lead ECG [ECG] Routine Y 01/06/17 12:49 Completed EV carotid duplex imaging BI Stat Y 01/06/17 14:13 Completed EV echocardiogram Stat Y 01/06/17 14:13 Completed Date of admission: 01/06/17 13:24 Primary care physician: Janelle Galan CNP Consults: 01/06/17 14:20 Consult to Occupational Therapy [CONS] Routine Comment: Evaluate, develop and implement POC Reason for Consult: Right-sided weakness Consult to Physical Therapy [CONS] Routine Comment: Evaluate, develop and implement POC Reason for Consult: Right-sided weakness 01/07/17 11:08 Consult to Neurology [CONS] Routine Consulting Provider: [facility]rology [facility] Reason for Consult: R side weakness, MRI negative Call Completed: Yes Hospital course: Ms. Lubin is a 52 year old female - Time Spent with Patient Total time spent providing and/or coordinating discharge services: - Constitutional Vitals: Temp Pulse Resp BP Pulse Ox 97.9 F 59 16 125/64 98 01/08/17 07:50 01/08/17 07:50 01/08/17 10:52 01/08/17 07:50 01/08/17 10:52 - Stroke Contraindication Not Initiating IV-Tpa: Not Indicated - Symptoms Rapidly Improving Has Patient Been Evaluated by Rehab for Stroke: Yes - Attending Attestation I examined this patient and my medical decision-making was reviewed with the Resident Physician on 01/08/17. I agree with the documented findings, disposition and treatment plan as described except to the extent set forth below. Ms. Lubin feels OK but still has R side weakness. Feels better on oxygen but may not qualify during day. She is afebrile with stable vitals. Exam alert. Comfortable Heart reg No wheeze Persistent R side weaknes Plan D/C home today. Outpatient therapy Wheeled walker.
--- NOTE | 2017-01-08 10:33 | Neurology - Consult Note ---
Date of Encounter: 01/08/17 Time of Encounter: 09:30 Assessment and Plan (1) CVA (cerebral vascular accident) Current Visit: Yes Status: Acute MRI with DWI positive lesion was noted at left periventricular area with a small ADC correlate. This does correlate with right sided lower extremity weakness that is persistent. Carotid US and echocardiogram negative upon workup. Recommend ASA 81mg daily. Recommend physical therapy for right lower extremity weakness. Syncopal episode possibly correlates with anoxia with patient reporting bilateral lower extremity weakness and tunneling of her vision as prodrome. She has felt much improved after starting supplemental oxygen. Hx of alpha-1 antitrypsin deficiency. Qualifiers: CVA mechanism: unspecified Qualified Code(s): I63.9 - Cerebral infarction, unspecified (2) Cervical stenosis of spinal canal Current Visit: Yes Status: Acute Will reassess for myelopathy with Dr. Dunlap being present. At this time recommend outpatient referral to ortho. History of Present Illness Chief complaint: syncope with right sided weakness HPI: Ms. Lubin is a 52 year old female with PMH of alpha-1 antitrypsin deficiency , COPD, and hypertension who presented to [facility] for a syncopal episode. She states Sunday afternoon she was walking in her yard towards her porch when her legs started feeling "like jello." She began having tunnel vision as well and reports she was not able to make it to her porch. The next thing she knew she was in an ambulance and realized she had lost bowel and bladder function during the time she had passed out. She had some right sided weakness when she woke up, which has been improving, but still persists somewhat on the right leg. She had an echocardiogram and carotid ultrasound workup, both of which were essentially normal. CT of the head was negative for intracranial abnormality. MRI demonstrated a small left periventricular area of acute infarct. The patient states that she is feeling 95% better than what she did on Sunday. She states she feels as if she can think more clearly since she has been on oxygen supplementation in the hospital. She also feels as if her weakness has greatly improved since yesterday. She does continue to have some tingling in her right hand, but she denies having any pain. Past Med Surg Social Fam HX - Past Medical History Medical history: asthma, COPD, DVT, hypertension, other Psychiatric history: anxiety, depression - Past Surgical History Surgical History: herniorrhaphy - Social History Smoking Status: Current every day smoker Packs per day: 1 Smokeless Tobacco Status: No Alcohol use: none Drug use: none - Family History Mother Living Status: Still Living Hx Family Cardiac Disorders: Yes (HTN) Father Living Status: Still Living Hx Family Cardiac Disorders: Yes (HTN) Hx Family Neurologic Disorders: Yes (STROKE) Medications and Allergies ALPRAZolam [Xanax 1 MG Tablet] 1 mg PO QID 04/03/16 [History] Albuterol Neb [Proventil Neb] 2.5 mg IH TID 04/03/16 [History] Albuterol Sulfate [Proair Respiclick] 2 puff IH Q4H PRN 04/03/16 [History] Budesonide/Formoterol 160/4.5 [Symbicort 160/4.5] 2 puff IH BID 04/03/16 [ History] Citalopram [CeleXA] 40 mg PO DAILY 04/03/16 [History] Fluticasone Propionate Nasal [Flonase] 50 mcg NS BID 04/03/16 [History] Loratadine/Pseudophed (12 HR) [Claritin D (12HR)] 1 tab PO DAILY 04/03/16 [ History] Omeprazole [PriLOSEC] 20 mg PO DAILY 04/03/16 [History] Oxycodone HCl/Acetaminophen [Percocet 5-325 mg Tablet] 1 tab PO TID 04/03/16 [ History] Docusate Sodium [Colace] 100 mg PO DAILY #15 capsule 07/06/16 [Rx] Mnmjr-2-Zhogrhkzed Inhibitor [Zemaira] 1,000 mg IV QWEEK 01/06/17 [History] Gabapentin [Neurontin] 300 mg PO QID 01/06/17 [History] Lisinopril [Zestril] 10 mg PO DAILY 01/06/17 [History] Metoclopramide [Reglan] 10 mg PO TID 01/06/17 [History] Allergies No Known Allergies Allergy (Verified 04/01/15 14:13) All Systems: A 10-system review of systems was performed and is negative for pertinent findings except as documented above in the HPI. Review of Systems: Reviewed and negative except as stated in HPI. Physical Examination - Vital Signs Vital Signs: Initial Vital Signs Temp Pulse Resp BP Pulse Ox 0 F L 81 18 192/107 98 01/06/17 12:12 01/06/17 12:12 01/06/17 12:12 01/06/17 12:12 01/06/17 12:12 - Constitutional General appearance: comfortable - Neurologic Motor examination - right side: 4/5: hip flexors, tibialis Anterior, quadriceps , toe extension (EHL), plantarflexion, 5/5: deltoids, biceps, triceps, wrist flexion, wrist extension, strategies analyst (4+/5) Motor examination - left side: 5/5: deltoids, biceps, triceps, wrist flexion, wrist extension, hip flexors, strategies analyst, quadriceps, tibialis Anterior, toe extension (EHL), plantarflexion Detailed sensory examination: intact Reflexes: Biceps: 2+, Triceps: 1+, Brachioradialis: 2+, Patella: 2+, Achilles: 1 + Mental Status Examination: awake, alert, oriented to person, oriented to place, oriented to time, follows commands appropriately, answers questions appropriately, makes eye contact Cranial nerve examination: PERRL, EOMI, corneal reflexes brisk symmetrically, sensory to face intact, mastication intact, no facial asymmetry is present, no dysarthria, hearing is intact symmetrically, soft palate elevates bilaterally upon phonation, flexes SCM and trapezius muscles symmetrically with full power, tongue protrudes midline, no atrophy or facial fasiculations present Cerebellar examination: no dysmetria, performs finger to nose and heel to lopez symmetrically without ataxia (Some shakiness at baseline with the right hand, does not worsen with finger to nose testing) Results - Laboratory Findings CBC and BMP: 01/06/17 12:14 01/07/17 11:14 Abnormal lab findings: Abnormal lab results RBC 5.06 M/mcL (3.82-4.97) H 01/06/17 12:14 Hgb 16.6 g/dL (11.5-15.4) H 01/06/17 12:14 Hct 46.8 % (35.3-44.9) H 01/06/17 12:14 Potassium 3.3 mEq/L (3.5-4.5) L 01/07/17 11:14 Glucose 102 mg/dL (70-99) H 01/07/17 11:14 POC Glucose 135 (58-89) H 01/06/17 12:13 HDL Cholesterol 25 mg/dL (40-59) L 01/07/17 02:54 Consult Discharge Plan - Plan Referrals: Janelle Galan, BRITTANIE [Primary Care Provider] - Toni Glez DO [Partnered Physician] -
[2017-01-08] MEDS: Budesonide/Formoterol 160/4.5 MDI IH SCH (10:51)
== END 2017-01-08 16:23 | disposition home or self-care (01) ==
LOC: EMEROO 12:11 → 3ANU 12:11 → SUATTDRO 13:24 → 2NENU 14:16
PROVIDERS: ADMIT Internal Medicine; ATTEND Internal Medicine

== ENCOUNTER 2017-02-13 16:57 | Inpatient (IN) ==
--- NOTE | 2017-02-13 17:07 | Emergency Department Note ---
Disposition Clinical Impression: Dysarthria Cerebrovascular accident Qualifiers: CVA mechanism: unspecified Qualified Code(s): I63.9 - Cerebral infarction, unspecified Disposition: Admitted As Inpatient Condition: Good Neuro HPI - General Chief Complaint: ED Neuro Symptoms/Deficit Stated Complaint: poss CVA Time Seen by Provider: 02/13/17 17:03 - History of Present Illness HPI Narrative: 52-year-old female [facility] with a chief complaint of possible stroke. Patient reports around lunch today which is 10:30 to 11:00 at the [facility]it[facility] she started having one of her "episodes". She states she started having trouble with her speech as well as right sided weakness which is chronic for her. EMS transported the patient here for evaluation. She reports that she has had multiple episodes of this in the past. She states that she is on aspirin for her prior strokes. She states that she has chronic weakness of her right side. She does also report a headache as well as chest pain that started with this. No other complaints. Onset of Symptoms Date: 02/13/17 Onset of Symptoms Time: 11:00 Symptom Onset Unknown: No Location: speech, right arm, right leg History of same: Yes Severity: moderate Symptoms Improving: No Improves with: none Worsens with: none Context: sudden onset On Anticoagulants: No Associated symptoms: Reports: headaches. Denies: confusion, chest pain, nausea/ vomiting Treatments Prior to Arrival: none - Related Data Home Medications: Home Medications Medication Instructions Recorded Confirmed ALPRAZolam [Xanax 1 MG Tablet] 1 mg PO QID 04/03/16 02/13/17 Albuterol Neb [Proventil Neb] 2.5 mg IH TID 04/03/16 02/13/17 Albuterol Sulfate [Proair 2 puff IH Q4H PRN 04/03/16 02/13/17 Respiclick] Budesonide/Formoterol 160/4.5 2 puff IH BID 04/03/16 02/13/17 [Symbicort 160/4.5] Citalopram [CeleXA] 40 mg PO DAILY 04/03/16 02/13/17 Fluticasone Propionate Nasal 50 mcg NS BID 04/03/16 02/13/17 [Flonase] Loratadine/Pseudophed (12 HR) 1 tab PO DAILY 04/03/16 02/13/17 [Claritin D (12HR)] Omeprazole [PriLOSEC] 20 mg PO DAILY 04/03/16 02/13/17 Oxycodone HCl/Acetaminophen 1 tab PO TID 04/03/16 02/13/17 [Percocet 5-325 mg Tablet] Gabapentin [Neurontin] 300 mg PO QID 01/06/17 02/13/17 Lisinopril [Zestril] 10 mg PO DAILY 01/06/17 02/13/17 Metoclopramide [Reglan] 10 mg PO TID 01/06/17 02/13/17 Furosemide [Lasix] 20 mg PO DAILY 02/13/17 02/13/17 Potassium Chloride [Klor-Con 10] 10 meq PO BID 02/13/17 02/13/17 Prolastin-C 0 mg IV QWEEK 02/13/17 02/13/17 Previous Rx's Medication Instructions Recorded Aspirin 81 mg PO DAILY 30 Days 01/08/17 Allergies/Adverse Reactions: Allergies Allergy/AdvReac Type Severity Reaction Status Date / Time No Known Allergies Allergy Verified 04/01/15 14:13 All systems ED: reviewed and negative except as stated. Constitutional: Denies: fever Cardiovascular: Reports: chest pain Respiratory: Denies: dyspnea Gastrointestinal: Denies: abdominal pain, nausea, vomiting Neurological: Reports: headache, weakness, paresthesias Past Medical History - Past Medical History Attestation: Yes The following information was validated with the patient. 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 - Social History Smoking Status: Current every day smoker Smokeless Tobacco Status: No Alcohol use: Reports: none Drug use: Reports: none Physical Exam - General Limitations: no limitations General appearance: alert, in no apparent distress - Head Head exam: atraumatic, normocephalic, normal inspection - Eye Eye exam: Present: normal appearance, PERRL, EOMI - ENT ENT exam: normal exam - Neck Neck exam: Present: normal inspection, full ROM - Chest Chest inspection: Present: normal inspection, symmetric chest wall rise - Respiratory Respiratory exam: Present: normal lung sounds bilaterally - Cardiovascular Cardiovascular exam: Present: regular rate, normal rhythm, normal heart sounds - Abdominal Exam Abdominal exam: Present: soft, Non-Tender. Absent: tenderness, distention, rigidity - Extremities Exam Extremities exam: Present: normal inspection, full ROM - Expanded Upper Extremity Exam Shoulder exam: Present: normal inspection, full ROM Arm exam: Present: normal inspection, full ROM Elbow exam: Present: normal inspection, full ROM Forearm/Wrist exam: Present: normal inspection, full ROM Hand exam: Present: normal inspection, full ROM Vascular exam: Normal: radial pulse - Expanded Lower Extremity Exam Hip/Pelvis exam: Present: normal inspection, full ROM Upper leg exam: Present: normal inspection, full ROM Knee exam: Present: normal inspection, full ROM Lower leg exam: Present: normal inspection, full ROM Ankle exam: Present: normal inspection, full ROM Foot/toe exam: Present: normal inspection, full ROM Neurovascular/Tendon exam: Absent: motor deficit, sensory deficit - Neurological Exam Neurological exam: Present: alert, oriented X3, CN II-XII intact - Expanded Neurological Exam Patient oriented to: Present: person, place, time Speech: Present: fluid speech (With mild dysarthria) Cranial nerves: EOM function (II, III, IV, ): Normal, facial sensation (V): Normal, spinal accessory function (XI): Normal, tongue deviation (XII): Normal Motor strength - LUE: 5/5 Motor strength - RUE: 4/5 (Chronic) Motor strength - LLE: 5/5 Motor strength - RLE: 4/5 (Chronic) Sensory exam upper extremity: light touch: Normal Sensory exam lower extremity: light touch: Normal Coma Scale Eye Opening: Spontaneous Coma Scale Motor Response: Obeys Commands Coma Scale Verbal Response: Oriented Coma Scale Total: 15 - Psychiatric Psychiatric exam: Present: normal affect, normal mood - Skin Skin exam: Present: warm, dry, intact, normal color Course Course Narrative: Patient seen and examined. Vital signs reviewed. Stroke alert called at time of exam. CT of the head as well as labs ordered. We will be in consultation with [facility]. - Reevaluation(s) Reevaluation #1: I discussed the results of her lab work to date as well as the [facility] neurologist recommendations for more imaging and admission. The patient is in agreement. - Consultations Consultation #1: [facility] stroke neurology was consulted for this patient. We discussed the patient' s history, exam findings as well as current interventions. They report that they would get an angiogram of the head while in the emergency department and admit the patient for repeat MRI. They state that the patient is outside of the window for TPA. Vital Signs Temperature 0 F L 02/13/17 16:59 Pulse Rate 62 02/13/17 16:59 Respiratory Rate 16 02/13/17 16:59 Blood Pressure 156/88 02/13/17 16:59 O2 Sat by Pulse Oximetry 98 02/13/17 16:59 Temperature 98.2 F 02/13/17 20:15 Pulse Rate 64 02/13/17 20:15 Respiratory Rate 17 02/13/17 21:01 Blood Pressure 138/88 02/13/17 20:15 O2 Sat by Pulse Oximetry 97 02/13/17 21:01 Oxygen Delivery Oxygen Delivery Room Air Neuro Symptoms/Deficit - MDM Narrative Medical decision making narrative: 52-year-old female [facility] due to "one of her episodes". Started around 10:30 today. By the time she was evaluated she was outside the window for TPA. She reports difficulty with speech as well as worsening right sided weakness. She was admitted here in December 2016 with neurologic consultation reporting a CVA at that time. She takes aspirin daily. Her CT scan of her head was negative. [facility] was consulted for stroke evaluation. They recommended a CT of the head which was performed in the emergency department and was normal. They also recommended admission for observation as well as repeat brain MRI. Patient given aspirin in the department. Hospitalist service consulted and accepts the patient - Lab Data Lab results reviewed: Yes I reviewed the patient's lab results. Result diagrams: 02/13/17 17:07 02/13/17 17:07 Lab Results 02/13/17 02/13/17 02/13/17 Range/Units 17:03 17:07 17:07 WBC 10.8 (4.3-11.1) K/mcL RBC 4.84 (3.82-4.97) M/mcL Hgb 15.2 (11.5-15.4) g/dL Hct 45.0 H (35.3-44.9) % MCV 93.0 (83.0-100.0) fL MCH 31.4 (28.0-33.3) pg MCHC 33.8 (31.6-35.5) g/dL RDW 12.8 (11.5-14.5) % Plt Count 291 (140-400) K/mcL MPV 9.9 (9.4-12.4) fL Immature Gran % 0.2 (0-4) % Seg Neutrophils % 65.8 % Lymphocytes % 26.7 % Monocytes % 5.7 % Eosinophils % 1.3 % Basophils % 0.3 % Neutrophils # 7.1 (1.6-8.9) K/mcL Lymphocytes # 2.9 (0.6-4.6) K/mcL Monocytes # 0.6 (0.0-1.3) K/mcL Eosinophils # 0.1 (0.0-0.6) K/mcL Basophils # 0.0 (0.0-0.2) K/mcL PT 10.5 (9.4-12.1) Seconds INR 1.0 APTT 30.5 (26.0-36.0) Seconds Sodium (136-145) mEq/L Potassium (3.5-4.5) mEq/L Chloride (98-109) mEq/L Carbon Dioxide (19-29) mEq/L BUN (7-20) mg/dL Creatinine (0.57-1.11) mg/dL Est GFR ( Amer) (> 60) Est GFR (Non-Af Amer) (> 60) BUN/Creatinine Ratio (6-26) Glucose (70-99) mg/dL POC Glucose 112 H (58-89) Calculated Osmolality (280-300) Calcium (8.6-10.8) mg/dL Troponin I (0-0.03) ng/mL Urine Color (Yellow) Urine Clarity (Clear) Urine pH (5.0-8.0) pH Units Ur Specific Patterson (1.010-1.025) Urine Protein (Neg-Trace) mg/dL Urine Glucose (UA) (Normal) mg/dL Urine Ketones (Negative) mg/dL Urine Blood (Negative) Urine Nitrite (Negative) Urine Bilirubin (Negative) Urine Urobilinogen (Normal) mg/dL Ur Leukocyte Esterase (Negative) Urine Microscopic RBC (0-3) per hpf Urine Microscopic WBC (0-3) per hpf Ur Squamous Epith Cells (None-Few) per lpf Urine Bacteria (None-Few) per hpf Hyaline Casts (None-Few) per lpf Ur Culture Indicated? (NO) Urine Opiates Screen (Yqulbg=107) ng/mL Ur Barbiturates Screen (Mayooz=302) ng/mL Ur Phencyclidine Scrn (Cutoff=25) ng/mL Ur Amphetamines Screen (Oooajm=5177) ng/mL U Benzodiazepines Scrn (Pgohze=382) ng/mL Urine Cocaine Screen (Cutoff= 300) ng/mL U Marijuana (THC) Screen (Cutoff = 50) ng/mL 02/13/17 02/13/17 02/13/17 Range/Units 17:07 17:07 18:05 WBC (4.3-11.1) K/mcL RBC (3.82-4.97) M/mcL Hgb (11.5-15.4) g/dL Hct (35.3-44.9) % MCV (83.0-100.0) fL MCH (28.0-33.3) pg MCHC (31.6-35.5) g/dL RDW (11.5-14.5) % Plt Count (140-400) K/mcL MPV (9.4-12.4) fL Immature Gran % (0-4) % Seg Neutrophils % % Lymphocytes % % Monocytes % % Eosinophils % % Basophils % % Neutrophils # (1.6-8.9) K/mcL Lymphocytes # (0.6-4.6) K/mcL Monocytes # (0.0-1.3) K/mcL Eosinophils # (0.0-0.6) K/mcL Basophils # (0.0-0.2) K/mcL PT (9.4-12.1) Seconds INR APTT (26.0-36.0) Seconds Sodium 141 (136-145) mEq/L Potassium 4.0 (3.5-4.5) mEq/L Chloride 106 (98-109) mEq/L Carbon Dioxide 25 (19-29) mEq/L BUN 11 (7-20) mg/dL Creatinine 0.90 (0.57-1.11) mg/dL Est GFR ( Amer) > 60 (> 60) Est GFR (Non-Af Amer) > 60 (> 60) BUN/Creatinine Ratio 12 (6-26) Glucose 103 H (70-99) mg/dL POC Glucose (58-89) Calculated Osmolality 292 (280-300) Calcium 9.6 (8.6-10.8) mg/dL Troponin I 0.00 (0-0.03) ng/mL Urine Color Yellow (Yellow) Urine Clarity Clear (Clear) Urine pH 7.0 (5.0-8.0) pH Units Ur Specific Patterson 1.019 (1.010-1.025) Urine Protein Negative (Neg-Trace) mg/dL Urine Glucose (UA) Normal (Normal) mg/dL Urine Ketones Negative (Negative) mg/dL Urine Blood Moderate H (Negative) Urine Nitrite Negative (Negative) Urine Bilirubin Negative (Negative) Urine Urobilinogen Normal (Normal) mg/dL Ur Leukocyte Esterase Negative (Negative) Urine Microscopic RBC 15-30 H (0-3) per hpf Urine Microscopic WBC 3-5 H (0-3) per hpf Ur Squamous Epith Cells Many H (None-Few) per lpf Urine Bacteria None Seen (None-Few) per hpf Hyaline Casts None Seen (None-Few) per lpf Ur Culture Indicated? NO (NO) Urine Opiates Screen (Ywlklo=986) ng/mL Ur Barbiturates Screen (Zerpfk=701) ng/mL Ur Phencyclidine Scrn (Cutoff=25) ng/mL Ur Amphetamines Screen (Asrgrl=4695) ng/mL U Benzodiazepines Scrn (Tejewy=622) ng/mL Urine Cocaine Screen (Cutoff= 300) ng/mL U Marijuana (THC) Screen (Cutoff = 50) ng/mL 02/13/17 Range/Units 18:05 WBC (4.3-11.1) K/mcL RBC (3.82-4.97) M/mcL Hgb (11.5-15.4) g/dL Hct (35.3-44.9) % MCV (83.0-100.0) fL MCH (28.0-33.3) pg MCHC (31.6-35.5) g/dL RDW (11.5-14.5) % Plt Count (140-400) K/mcL MPV (9.4-12.4) fL Immature Gran % (0-4) % Seg Neutrophils % % Lymphocytes % % Monocytes % % Eosinophils % % Basophils % % Neutrophils # (1.6-8.9) K/mcL Lymphocytes # (0.6-4.6) K/mcL Monocytes # (0.0-1.3) K/mcL Eosinophils # (0.0-0.6) K/mcL Basophils # (0.0-0.2) K/mcL PT (9.4-12.1) Seconds INR APTT (26.0-36.0) Seconds Sodium (136-145) mEq/L Potassium (3.5-4.5) mEq/L Chloride (98-109) mEq/L Carbon Dioxide (19-29) mEq/L BUN (7-20) mg/dL Creatinine (0.57-1.11) mg/dL Est GFR ( Amer) (> 60) Est GFR (Non-Af Amer) (> 60) BUN/Creatinine Ratio (6-26) Glucose (70-99) mg/dL POC Glucose (58-89) Calculated Osmolality (280-300) Calcium (8.6-10.8) mg/dL Troponin I (0-0.03) ng/mL Urine Color (Yellow) Urine Clarity (Clear) Urine pH (5.0-8.0) pH Units Ur Specific Patterson (1.010-1.025) Urine Protein (Neg-Trace) mg/dL Urine Glucose (UA) (Normal) mg/dL Urine Ketones (Negative) mg/dL Urine Blood (Negative) Urine Nitrite (Negative) Urine Bilirubin (Negative) Urine Urobilinogen (Normal) mg/dL Ur Leukocyte Esterase (Negative) Urine Microscopic RBC (0-3) per hpf Urine Microscopic WBC (0-3) per hpf Ur Squamous Epith Cells (None-Few) per lpf Urine Bacteria (None-Few) per hpf Hyaline Casts (None-Few) per lpf Ur Culture Indicated? (NO) Urine Opiates Screen Negative (Ndhkmc=119) ng/mL Ur Barbiturates Screen Negative (Vzsuix=921) ng/mL Ur Phencyclidine Scrn Negative (Cutoff=25) ng/mL Ur Amphetamines Screen Negative (Qusnfq=2423) ng/mL U Benzodiazepines Scrn Negative (Zrfxof=521) ng/mL Urine Cocaine Screen Negative (Cutoff= 300) ng/mL U Marijuana (THC) Screen Negative (Cutoff = 50) ng/mL - Radiology Data Radiology results reviewed: Yes I reviewed the patient's radiology results. Head CT 02/13/17 17:03 IMPRESSION: No acute intracranial abnormality. Findings were discussed with Dr. Snyder at 5:31 pm on 02/13/2017. D/ / Feliz Liao MD / Feliz Liao MD Interpreting Provider: Feliz Liao MD Head CTA 02/13/17 17:32 IMPRESSION: Normal CTA of the head. D/ / Feliz Liao MD / Feliz Liao MD Interpreting Provider: Feliz Liao MD - EKG Data EKG attestation: Yes I reviewed and interpreted this EKG. EKG results narrative: EKG demonstrates sinus rhythm with a rate of 69 bpm. Normal axis. Normal intervals. T-wave flattening in lead 3. No ST elevations or depressions. No acute ischemic findings. NIH Stroke Scale - Level of Consciousness LOC: Alert - LOC Questions LOC Questions: Answers both correctly - LOC Commands LOC Commands: Performs both correctly - Best Gaze Best Gaze: Normal - Visual Visual: No visual loss - Facial Palsy Facial Palsy: Normal - Motor Arms Motor Arm-Left: No drift for 10 seconds Motor Arm-Right: No drift for 10 seconds - Motor Legs Motor Leg-Left: No drift for 5 seconds Motor Leg-Right: No drift for 5 seconds - Limb Ataxia Limb Ataxia: Absent of affected limb too weak to perform exam - Sensory Sensory: Normal - Best Language Best Language: No aphasia - Dysarthria Dysarthria: Mild, slurs some words - Extinction and Inattention Extinction and Inattention: Normal - NIHSS Total Score NIHSS Total Score: 1 S.B.A.R. - S.B.A.R. Situation: Demographics, MOA Background: Presenting Complaint, Relevant PMH, Meds, & Allergies Assessment: Course and respsone to treatment, Exam Concerns, Patient/Family Expectation, Pertinant Lab Results, Outstanding Labs Recommendation: Barrier(s) to disposition, Recommendation based on pending studies, treatments, or consults S.B.A.R. Report Given to: Hospitalist [place] Repor Time: 19:10 Attestation Statement - Attestation Attestation: I, Celio Snyder, examined this patient and my medical decision-making was reviewed with the WIND FIELD MANAGER/PA/Advanced Practice Nurse/Resident Physician. I agree with the documented findings, disposition and treatment plan as described except to the extent set forth below. 52-year-old female presents with concerns of possible CVA. Patient states she has had multiple "episodes" like this before. She reports word finding difficulty and weakness of the right upper and right lower extremity. EMS state that she had weakness of the right upper and right lower extremity however they were suspicious of possible malingering as there was a lag between the time of letting go over her arms to the time that she dropped to the ground. Symptoms occurred approximately at 10:30 to 11:00 and it has been multiple hours since the onset of her symptoms. On my testing the patient has no facial droop, equal bilateral upper extremity strength, 4 out of 5 strength to the right lower extremity compared to the left however there is still concern for lack of effort. CT of the head did not reveal acute infarcts or intracranial hemorrhage or fracture. Resident spoke with the [facility] neurologist who did not recommend TPA. Patient was comfortable with plan for admission to hospital for further evaluation.
[2017-02-13 17:16] LABS: Basophils % 0.3 %; Eosinophils # 0.1 K/mcL (0.0-0.6); Eosinophils % 1.3 %; Hemoglobin 15.2 g/dL (11.5-15.4); Immature Granulocytes % 0.2 % (0-4); Lymphocytes # 2.9 K/mcL (0.6-4.6); Lymphocytes % 26.7 %; Mean Corpuscular HGB Conc 33.8 g/dL (31.6-35.5); Mean Corpuscular Hemoglobin 31.4 pg (28.0-33.3); Mean Platelet Volume 9.9 fL (9.4-12.4); Monocytes # 0.6 K/mcL (0.0-1.3); Monocytes % 5.7 %; Neutrophils # 7.1 K/mcL (1.6-8.9); Platelet Count 291 K/mcL (140-400); Red Blood Count 4.84 M/mcL (3.82-4.97); Red Cell Distribution Width 12.8 % (11.5-14.5); Segmented Neutrophils % 65.8 %
[2017-02-13 17:27] LABS: Prothrombin Time 10.5 Seconds (9.4-12.1)
[2017-02-13 17:28] LABS: Activated Partial Thrombo Time 30.5 Seconds (26.0-36.0)
[2017-02-13 17:29] LABS: BUN/Creatinine Ratio 12 (6-26); Blood Urea Nitrogen 11 mg/dL (7-20); Calcium 9.6 mg/dL (8.6-10.8); Carbon Dioxide 25 mEq/L (19-29); Chloride 106 mEq/L (98-109); Glucose 103 mg/dL (70-99); Osmolality,Calculated 292 (280-300); Sodium 141 mEq/L (136-145); eGFR For African Americans > 60 (> 60); eGFR For Non-African Americans > 60 (> 60)
[2017-02-13 18:14] LABS: Bilirubin,Urine Negative (Negative); Blood,Urine Moderate (Negative); Clarity,Urine Clear (Clear); Color,Urine Yellow (Yellow); Glucose,Urine (UA) Normal (Normal); Ketones,Urine Negative (Negative); Leukocyte Esterase,Urine Negative (Negative); Nitrite,Urine Negative (Negative); Protein,Urine Negative (Neg-Trace); Specific Gravity,Urine 1.019 (1.010-1.025); Urobilinogen,Urine Normal (Normal)
[2017-02-13 18:17] LABS: Bacteria,Urine None Seen per hpf (None-Few); Hyaline Casts,Urine None Seen per lpf (None-Few); RBC,Urine 15-30 per hpf (0-3); Squamous Epithelial Cell,Urine Many per lpf (None-Few)
[2017-02-13 18:21] LABS: Amphetamine Screen,Urine Negative ng/mL (Cutoff=1000); Barbiturate Screen,Urine Negative ng/mL (Cutoff=200); Benzodiazepines Screen,Urine Negative ng/mL (Cutoff=200); Cannabinoid Screen,Urine Negative ng/mL (Cutoff = 50); Cocaine Screen,Urine Negative ng/mL (Cutoff= 300); Opiate Screen,Urine Negative ng/mL (Cutoff=300); Phencyclidine Screen,Urine Negative ng/mL (Cutoff=25)
[2017-02-13] MEDS ORDERED: Naloxone 0.4 MG/ML INJ IVP PRN (20:27)
[2017-02-13] MEDS ORDERED: NON-FORMULARY MEDICATION 1 EACH EACH (Albuterol Sulfate [Proair Respiclick] 2 PUFF) IH PRN (20:38)
--- NOTE | 2017-02-13 20:48 | Internal Med History&Physical ---
Date of Encounter: 02/13/17 Time of Encounter: 20:10 Assessment and Plan (1) Cerebrovascular accident Current visit: Yes Status: Acute Patient presented with dysarthria and right-sided weakness. Weakness seems to be chronic for the patient. CT of the brain and CT angiogram done in the ED were both negative. Patient has obvious right-sided weakness and right upper and lower extremities. Facial asymmetry is present. Physical therapy and speech therapy have been consulted Patient will be continued on aspirin and statin. Neurology has been contacted. Echocardiogram and carotid Doppler have been done recently on previous admission. MRI brain pending. Qualifiers: CVA mechanism: unspecified Qualified Code(s): I63.9 - Cerebral infarction, unspecified (2) Ymhcn-5-gbxrazmcubs deficiency Current visit: No Status: Chronic Chronic condition. Patient is on Prolastin C infusions via port in left subclavian. (3) Chronic obstructive pulmonary disease Current visit: No Status: Chronic Chronic, not in exacerbation. Continue albuterol breathing treatment as needed. Continue O2 via nasal cannula. Qualifiers: COPD type: emphysema Emphysema type: panlobular Qualified Code(s): J43.1 - Panlobular emphysema (4) Tobacco abuse Current visit: No Status: Chronic Nicotine patch, counselled about cessation. (5) DVT prophylaxis Current visit: Yes Status: Acute Continue heparin subcutaneous. Internal Medicine - H&P: HPI Admitted From: Emergency Dept History of present illness: Ms. Lubin is a 52 year old female with past medical history of asthma, COPD, alpha-1 antitrypsin deficiency, DVT and hypertension and anxiety and depression. She presents to the ED with complaints of trouble with her speech. Also complains of right-sided weakness. This seems to be a chronic problem for her. Patient has apparently had multiple episodes of similar complaints in the past. She she has been admitted recently and had a full workup including carotid Doppler echocardiogram and MRI of brain. Patient is awake and alert. She is able to provide HISTORY. No family members at bedside. Patient presents to the ED from long term. She states she has been there for the past few days. Also complains of headache. No other complaints at present. Patient denies chest pain or shortness of breath or abdominal pain or any other complaints at present. Patient does have facial asymmetry. She will require speech therapy evaluation and physical therapy evaluation. CT angiogram of the head has been done in the ED and is normal. Neurology has been consulted. Labs are all fairly within normal limits. She will be continued on aspirin and statin. We will continue all her home medications as well. Past Med Surg Social Fam HX - Past Medical History Medical history: asthma, COPD, DVT, hypertension, other Psychiatric history: anxiety, depression - Past Surgical History Surgical History: herniorrhaphy - Social History Smoking Status: Former smoker Smokeless Tobacco Status: No Alcohol use: none Drug use: none - Family History Mother Living Status: Still Living Hx Family Cardiac Disorders: Yes (HTN) Father Living Status: Still Living Hx Family Cardiac Disorders: Yes (HTN) Hx Family Neurologic Disorders: Yes (STROKE) Internal Medicine - H&P: Meds ALPRAZolam [Xanax 1 MG Tablet] 1 mg PO QID 04/03/16 [History] Albuterol Neb [Proventil Neb] 2.5 mg IH TID 04/03/16 [History] Albuterol Sulfate [Proair Respiclick] 2 puff IH Q4H PRN 04/03/16 [History] Budesonide/Formoterol 160/4.5 [Symbicort 160/4.5] 2 puff IH BID 04/03/16 [ History] Citalopram [CeleXA] 40 mg PO DAILY 04/03/16 [History] Fluticasone Propionate Nasal [Flonase] 50 mcg NS BID 04/03/16 [History] Loratadine/Pseudophed (12 HR) [Claritin D (12HR)] 1 tab PO DAILY 04/03/16 [ History] Omeprazole [PriLOSEC] 20 mg PO DAILY 04/03/16 [History] Oxycodone HCl/Acetaminophen [Percocet 5-325 mg Tablet] 1 tab PO TID 04/03/16 [ History] Gabapentin [Neurontin] 300 mg PO QID 01/06/17 [History] Lisinopril [Zestril] 10 mg PO DAILY 01/06/17 [History] Metoclopramide [Reglan] 10 mg PO TID 01/06/17 [History] Aspirin 81 mg PO DAILY 30 Days 01/08/17 [Rx] Furosemide [Lasix] 20 mg PO DAILY 02/13/17 [History] Potassium Chloride [Klor-Con 10] 10 meq PO BID 02/13/17 [History] Prolastin-C 0 mg IV QWEEK 02/13/17 [History] Allergies No Known Allergies Allergy (Verified 04/01/15 14:13) All Systems PM: A 10-system review of systems was performed and is negative for pertinent findings except as documented above in the HPI. - Constitutional Constitutional: as per HPI - EENT Eyes: no blurry vision - Cardiovascular Cardiovascular ROS IM: no chest pain, no dyspnea, no lightheadedness, no orthopnea - Respiratory Respiratory: no cough, no dyspnea, no wheezing, no chest congestion - Gastrointestinal Gastrointestinal: no abdominal pain, no nausea, no vomiting - Neurological Neurological ROS: focal weakness, weakness, no loss of vision, no memory loss, no tingling - Constitutional Vitals: Temp Pulse Resp BP Pulse Ox 98.2 F 64 17 138/88 99 02/13/17 20:15 02/13/17 20:15 02/13/17 20:15 02/13/17 20:15 02/13/17 20:15 General appearance: Present: A&O X 3, no acute distress, answers questions appropriately - Head Head exam: Present: atraumatic - ENT ENT exam: Present: mucous membranes moist - Neck Neck exam general surgery: Present: supple - Respiratory Respiratory exam: Present: CTAB. Absent: rhonchi, wheezes - Cardiovascular Cardiovascular exam: Present: RRR, +S1, +S2 - GI/Abdominal GI/Abdominal exam: Present: soft. Absent: guarding, tenderness - Extremities Exam Extremities exam: Present: radial pulses palpable and symetrical. Absent: cyanotic, tenderness - Neurological Exam Neurological exam: Present: alert, oriented X3. Absent: no focal deficits ( right upper and lower extremity strength 3/5, facial droop), strengths equal and symetr throughout Internal Med - H&P Results - Labs CBC & Chem 7: 02/13/17 17:07 02/13/17 17:07
[2017-02-13] MEDS: Albuterol 2.5 MG/3 ML NEBULIZER IH SCH (21:01)
[2017-02-13] MEDS: Budesonide/Formoterol 160/4.5 MDI IH SCH (21:05)
[2017-02-13] MEDS: Fluticasone Propionate Nasal 50 MCG/SPRAY BOTTLE NS SCH (21:10)
[2017-02-13] MEDS: Aspirin 81 MG TAB.CHEW PO SCH (21:10)
[2017-02-13] MEDS: Nicotine 21 MG PATCH.TD24 TD SCH (22:21)
[2017-02-14] MEDS: *HR* Heparin 5,000 UNIT/ML VIAL SQ SCH ×2 (05:46→16:27)
[2017-02-14 05:54] LABS: Hematocrit 38.8 % (35.3-44.9); Mean Corpuscular HGB Conc 33.5 g/dL (31.6-35.5); Mean Corpuscular Hemoglobin 31.5 pg (28.0-33.3); Mean Corpuscular Volume 93.9 fL (83.0-100.0); Mean Platelet Volume 10.3 fL (9.4-12.4); Platelet Count 250 K/mcL (140-400); Red Blood Count 4.13 M/mcL (3.82-4.97)
[2017-02-14 05:59] LABS: BUN/Creatinine Ratio 12 (6-26); Blood Urea Nitrogen 10 mg/dL (7-20); Calcium 8.9 mg/dL (8.6-10.8); Carbon Dioxide 25 mEq/L (19-29); Chloride 107 mEq/L (98-109); Glucose 93 mg/dL (70-99); Osmolality,Calculated 289 (280-300); Sodium 140 mEq/L (136-145); eGFR For African Americans > 60 (> 60); eGFR For Non-African Americans > 60 (> 60)
[2017-02-14 06:04] LABS: Potassium 3.5 mEq/L (3.5-4.5)
[2017-02-14] MEDS: Albuterol 2.5 MG/3 ML NEBULIZER IH SCH ×3 (08:48→20:20)
[2017-02-14] MEDS: Budesonide/Formoterol 160/4.5 MDI IH SCH ×2 (08:48→20:20)
[2017-02-14] MEDS: Nicotine 21 MG PATCH.TD24 TD SCH (09:54)
[2017-02-14] MEDS: Loratadine/Pseudophed (12 HR) 1 EACH TABLET PO SCH (09:54)
[2017-02-14] MEDS: Aspirin 81 MG TAB.CHEW PO SCH (09:54)
[2017-02-14] MEDS: Furosemide 20 MG TABLET PO SCH (09:54)
[2017-02-14] MEDS: Fluticasone Propionate Nasal 50 MCG/SPRAY BOTTLE NS SCH ×2 (09:57→21:50)
[2017-02-14] MEDS: ALPRAZolam 1 MG TABLET PO PRN ×2 (10:27→21:54)
[2017-02-14] MEDS ORDERED: SUMAtriptan succinate 25 MG TABLET PO PRN (12:49)
--- NOTE | 2017-02-14 12:53 | Internal Med Progress Note ---
Date of Encounter: 02/14/17 Time of Encounter: 12:49 - Assessment and plan (1) Cerebrovascular accident Current Visit: Yes Status: Acute Assessment and plan: Dysarthria is of a concern as patient was initially conversing without any difficulties but during my conversation with her she changed her speech. Chronic right sided weakness MRI brain shows no acute intracranial abnormalities ECHO and carotid dopplers show no valvular dysfunction and normal b/l carotid arteries (Studies done on December 2016) PT eval recommended outpatient therapy and speech therapy eval started patient on a regular diet awaiting neurology evaluation Qualifiers: CVA mechanism: unspecified Qualified Code(s): I63.9 - Cerebral infarction, unspecified (2) Mifqs-9-dmioaanjllq deficiency Current Visit: No Status: Chronic Assessment and plan: continue home medications O2 supplementation as needed (3) Chronic obstructive pulmonary disease Current Visit: No Status: Chronic Assessment and plan: Not in acute exacerbation continue home meds Qualifiers: COPD type: emphysema Emphysema type: panlobular Qualified Code(s): J43.1 - Panlobular emphysema (4) DVT prophylaxis Current Visit: Yes Status: Acute Assessment and plan: Heparin SQ (5) Tobacco abuse Current Visit: No Status: Chronic Assessment and plan: smoking cessation counseling provided nicotine supplementation provided (6) Headache Current Visit: Yes Status: Acute Assessment and plan: Reported history of migraine however not on any medications specifically for migraine states her current headache is consistent with the migraine headache she gets at home will start Sumatriptan 25mg PO prn Qualifiers: Headache type: unspecified Headache chronicity pattern: chronic headache Intractability: intractable Qualified Code(s): R51 - Headache - Subjective Interval history: Patient seen and examined at bedside. During my initial conversation with the patient, patient's speech was normal and she reported of having migraine headaches and the current headache consistent with the migraine headache she gets at home. However towards the end of my evaluation, she started having difficulty with her speech. Pt appears to be in no distress. Noted to have right sided weakness in upper and lower extremities but no facial droop noted at this time. - Constitutional Vitals: Temp Pulse Resp BP Pulse Ox 98.1 F 71 16 112/68 95 02/14/17 11:42 02/14/17 11:42 02/14/17 11:42 02/14/17 11:42 02/14/17 11:42 General appearance: Present: A&O X 3, no acute distress, answers questions appropriately - Head Head exam: Present: atraumatic, normocephalic - Eye Eye exam: Present: normal appearance, conjuntiva pink, sclera anicteric - Respiratory Respiratory exam: Present: CTAB. Absent: accessory muscle use, rales, rhonchi, wheezes - Cardiovascular Cardiovascular exam: Present: RRR, +S1, +S2. Absent: diastolic murmur, gallop, rubs, systolic murmur - GI/Abdominal GI/Abdominal exam: Present: normal bowel sounds, soft, no peritoneal signs. Absent: distended, tenderness - Extremities Exam Extremities exam: Present: warm, radial pulses palpable and symetrical. Absent : calf tenderness, cyanotic, pedal edema - Neurological Exam Neurological exam: Present: alert, oriented X3, speech deficit. Absent: pronater drift, facial droop Additional comments: right Upper and Lower extremity weakness Internal Medicine: Result - Labs CBC & Chem 7: 02/14/17 04:10 02/14/17 04:10 Labs: Short CBC 02/14/17 Range/Units 04:10 WBC 9.8 (4.3-11.1) K/mcL Hgb 13.0 D (11.5-15.4) g/dL Hct 38.8 (35.3-44.9) % Plt Count 250 (140-400) K/mcL BMP 02/14/17 04:10 Sodium 140 Potassium 3.5 Chloride 107 Carbon Dioxide 25 BUN 10 Creatinine 0.81 Glucose 93 Calcium 8.9 - ABG Interpretation ABG results: PT/INR, D-dimer PT 10.5 Seconds (9.4-12.1) 02/13/17 17:07 - Impressions Impressions Brain MRI 02/14/17 08:35 IMPRESSION: Unremarkable exam D/ / Abner Harden MD / Abner Harden MD Interpreting Provider: Abner Harden MD Consult Discharge Plan - Plan Referrals: Janelle Galan, [employer] [Primary Care Provider] -
--- NOTE | 2017-02-14 13:34 | Neurology - Consult Note ---
<Erik Newton - Last Filed: 02/14/17 13:41> Date of Encounter: 02/14/17 Time of Encounter: 09:30 Assessment and Plan (1) CVA (cerebral vascular accident) Current Visit: No Status: Acute Patient with acute on chronic strokelike symptoms in the same distribution as previous stroke. CT head noncontrast study and CTA of the head shows no acute intracranial abnormalities. Brain MRI states unremarkable exam and reads as no acute intracranial abnormality, mild chronic white matter microvascular ischemic changes, and remote high perimedian left frontal infarct in the left anterior cerebral artery territory. Patient has some improvement in her blurry vision but still has a paresthesias with no loss of 2 point discrimination in her sense of touch. Weakness on the right side is 4/5 compared to the left side which is 5/5. Recommend: continue medical management, consultation with physical therapy and speech therapy. Qualifiers: CVA mechanism: thrombosis Precerebral and cerebral artery: middle cerebral artery Laterality of affected vessel: left Qualified Code(s): I63.312 - Cerebral infarction due to thrombosis of left middle cerebral artery History of Present Illness Chief complaint: right sided weakness HPI: Ms. Lubin is a 52 year old female with history of previous CVA, COPD, DVT and hypertension. We are consulted for patient complaining of right-sided weakness and loss of consciousness times one day. Patient states she suffered a stroke about 6 weeks ago and had similar symptoms. Patient had residual right -sided weakness and speech aphasia with signs of improvement and strength and paresthesias secondary to therapy. Recent episode took place in [facility]. Patient states that she began to have symptoms between 10:30 and 1100 hrs. 1 day ago with headache left frontal temporal region of heavy pressure pain. There was sharp sensation as well, 4/10 in intensity and constant with worsening numbness and tingling to her right side extremities and right side of face. Patient states she complained to [facility] personnel but states she received no help until she lost consciousness 3-4 hours later that she was brought to the ED. Posterior tele-stroke consultation: Outside of time window for TPA recommend admission for imaging medical management and rehabilitation. Patient states she still has the headache, some blurry vision, paresthesias right upper extremity and right lower extremity but states her strength is getting better. Patient denies any shortness of breath worse than usual with her history of asthma, COPD and alpha-1 antitrypsin lung deficiency disease. Patient states she has been off her home medication since being in [facility]. Past Med Surg Social Fam HX - Past Medical History Attestation: Yes The following information was validated with the patient. Source: patient Medical history: asthma, COPD, DVT, hypertension, other Psychiatric history: anxiety, depression - Past Surgical History Surgical History: herniorrhaphy - Social History Smoking Status: Current every day smoker Smokeless Tobacco Status: No Alcohol use: none Drug use: none - Family History Mother Living Status: Still Living Hx Family Cardiac Disorders: Yes (HTN) Father Living Status: Still Living Hx Family Cardiac Disorders: Yes (HTN) Hx Family Neurologic Disorders: Yes (STROKE) Medications and Allergies ALPRAZolam [Xanax 1 MG Tablet] 1 mg PO QID 04/03/16 [History] Albuterol Neb [Proventil Neb] 2.5 mg IH TID 04/03/16 [History] Albuterol Sulfate [Proair Respiclick] 2 puff IH Q4H PRN 04/03/16 [History] Budesonide/Formoterol 160/4.5 [Symbicort 160/4.5] 2 puff IH BID 04/03/16 [ History] Citalopram [CeleXA] 40 mg PO DAILY 04/03/16 [History] Fluticasone Propionate Nasal [Flonase] 50 mcg NS BID 04/03/16 [History] Loratadine/Pseudophed (12 HR) [Claritin D (12HR)] 1 tab PO DAILY 04/03/16 [ History] Omeprazole [PriLOSEC] 20 mg PO DAILY 04/03/16 [History] Oxycodone HCl/Acetaminophen [Percocet 5-325 mg Tablet] 1 tab PO TID 04/03/16 [ History] Gabapentin [Neurontin] 300 mg PO QID 01/06/17 [History] Lisinopril [Zestril] 10 mg PO DAILY 01/06/17 [History] Metoclopramide [Reglan] 10 mg PO TID 01/06/17 [History] Aspirin 81 mg PO DAILY 30 Days 01/08/17 [Rx] Furosemide [Lasix] 20 mg PO DAILY 02/13/17 [History] Potassium Chloride [Klor-Con 10] 10 meq PO BID 02/13/17 [History] Prolastin-C 0 mg IV QWEEK 02/13/17 [History] Allergies No Known Allergies Allergy (Verified 04/01/15 14:13) All Systems: A 10-system review of systems was performed and is negative for pertinent findings except as documented above in the HPI. Patient admits to headache, paresthesias to right side of face, right upper extremity and right lower extremity, worsening weakness right upper and right lower extremity, nausea and vomiting Patient denies fever, chills, vision changes, changes in hearing, neck pain, chest pain, abdominal pain, diarrhea, incontinence of urine or stool. - Constitutional Constitutional ROS IM: as per HPI, headache(s) - Nose, Mouth, Throat Nose, mouth and throat: no dizziness, no dysphagia, no facial pain Physical Examination - Vital Signs Vital Signs: Initial Vital Signs Temp Pulse Resp BP Pulse Ox 0 F L 62 16 156/88 98 02/13/17 16:59 02/13/17 16:59 02/13/17 16:59 02/13/17 16:59 02/13/17 16:59 - Exam Exam: -General Appearance: Patient is a 52-year-old female who is alert and oriented 3 sitting up in bed eating breakfast and appears comfortable. When patient speaks she has some aphasia and sounds slow almost robotic but words are clearly understandable. Patient is pleasant and hopeful and getting better. -Neurological exam: Cranial nerves II-12 intact, no focal deficits observed, strength equal 5/5 bilaterally in upper and lower extremities, cerebellar motion test negative. Negative loss of sensation - Head Head exam: atraumatic, normocephalic, normal inspection - Eye Eye exam: Present: normal appearance, PERRL, EOMI, negative for scleral icterus negative for conjunctival pallor - ENT ENT exam: normal exam, normal oropharynx, mucous membranes moist - Neck Neck exam: Present: normal inspection, full ROM, trachea midline, negative JVD - Chest Chest inspection: Present: Patient has bilateral equal rise and fall of chest wall. Non-tender to palpation. - Respiratory Respiratory exam: Clear to auscultation bilaterally without wheezes rales or rhonchi Cardiovascular Cardiovascular exam: Present: regular rate, normal rhythm, normal heart sounds, without murmurs rubs or gallops. - Abdominal Exam Abdominal exam: Present: soft, nondistended, Non-Tender light and deep palpation in all quadrants. Bowel sounds normoactive throughout all 4 quadrants. Negative for hyper or hyperresonance. - Extremities Exam Extremities exam: Present: normal inspection, full ROM, pulses equal and regular bilaterally at radials and dorsal pedal. - Back Exam Back exam: Present: normal inspection, full ROM. Absent: tenderness, CVA tenderness (R), CVA tenderness (L) - Psychiatric Psychiatric exam: Present: normal affect, normal mood - Skin Skin exam: Present: warm, dry, intact, normal color - Constitutional General appearance: comfortable - Neurologic Motor examination - right side: 11/29: biceps, triceps, wrist flexion, wrist extension, finger grip machine operator, hip flexors, tibialis Anterior, quadriceps, toe extension (EHL) , plantarflexion, 12/29: deltoids Motor examination - left side: 12/29: deltoids, biceps, triceps, wrist flexion, wrist extension, hip flexors, finger grip machine operator, quadriceps, tibialis Anterior, toe extension (EHL), plantarflexion Detailed sensory examination: intact, light touch, two-point discrimination Reflex and gait examination: intact Reflexes: Biceps: 2+, Triceps: 2+, Brachioradialis: 2+, Patella: 2+, Achilles: 2 + Mental Status Examination: awake, alert, oriented to person, oriented to place, oriented to time, follows commands appropriately, answers questions appropriately, no agnosia, no aproxia Cranial nerve examination: PERRL, EOMI, visual hart intact, corneal reflexes brisk symmetrically, sensory to face intact, mastication intact, no facial asymmetry is present, no dysarthria, hearing is intact symmetrically, soft palate elevates bilaterally upon phonation, gag reflex intact, flexes SCM and trapezius muscles symmetrically with full power, tongue protrudes midline, no atrophy or facial fasiculations present Results - Laboratory Findings CBC and BMP: 02/14/17 04:10 02/14/17 04:10 Abnormal lab findings: Abnormal lab results POC Glucose 101 (58-89) H 02/13/17 21:16 Urine Blood Moderate (Negative) H 02/13/17 18:05 Urine Microscopic RBC 15-30 per hpf (0-3) H 02/13/17 18:05 Urine Microscopic WBC 3-5 per hpf (0-3) H 02/13/17 18:05 Ur Squamous Epith Cells Many per lpf (None-Few) H 02/13/17 18:05 Consult Discharge Plan - Plan Referrals: Janelle Galan, BRITTANIE [Primary Care Provider] - <Toni Glez - Last Filed: 02/14/17 16:02> Date of Encounter: 02/14/17 Time of Encounter: 15:50 Assessment and Plan (1) Conversion reaction Current Visit: Yes Status: Acute I am convinced that we would primarily dealing with either conversion reaction, or possibly malingering. I do not believe that the speech difficulty is physiologic. There is no central nervous system lesion to account for this. This is the second admission that she has had within a month's time with stroke like symptoms however the workup has been completely negative. She has had 2 negative MRI scans of the brain, CTA was negative as well. Her examination is nonphysiologic. Gen. in these cases the recommendation is to encourage and not to control. Confrontation generally leads to worsening of the conversion symptoms. She may have to have a short course of therapy. I will reevaluate her at your request. No further workup is necessary from a neurologic perspective. History of Present Illness HPI: The chart was reviewed, patient was seen and examined. Ms. Lubin is a 52- year-old woman who is being seen for neurologic evaluation secondary to complaints of right-sided weakness and paresthesias along with new onset speech difficulty. She was actually hospitalized here about 6 weeks as so ago with similar symptoms. She was sent to [facility] for contempt of court recently. Apparently she had an argument with a imaging account manager. The symptoms onset while she was in holding in the [facility]. She has had a CTA scan which was normal she is also had an MRI scan of the brain which was normal. Her speech is very slow and deliberate. However she is not making paraphasic errors her speech is not jargon. She is not really dysarthric because she does not make errors with pronouncing words. She has no problems with understanding speech or language because her responses are appropriate. All Systems: A 10-system review of systems was performed and is negative for pertinent findings except as documented above in the HPI. Review of Systems: Review of systems is consistent with the history of present illness and is otherwise negative. Physical Examination - Vital Signs Vital Signs: Initial Vital Signs Temp Pulse Resp BP Pulse Ox 0 F L 62 16 156/88 98 02/13/17 16:59 02/13/17 16:59 02/13/17 16:59 02/13/17 16:59 02/13/17 16:59 - Exam Exam: Neurologic exam finds that she is alert and oriented to person place and time. She follows commands and answers questions appropriately. There is no agnosia, aphasia, or apraxia. She gives a lucid history. Although her speech is slow and deliberate content of her speech and language are accurate. She is not making paraphasic errors, her speech is not jargon. She is not dysarthric. Cranial nerves find pupils are equal and reactive to light and accommodation, extraocular motility is intact. Sensory to face finds bilateral hypoesthesia. There is no facial asymmetry. There is no flattening of the nasolabial folds. Hearing was intact symmetrically. Soft palate elevates bilaterally upon phonation. Tongue protrudes midline. Motor exam finds normal tone of all 4 extremities however she has weakness of the right upper and right lower extremity and it does not appear to be physiologic. There are no involuntary movements or atrophy identified. Sensory exam finds facial paresthesias and patchy areas of hypoesthesia. Deep tendon reflexes are 2 symmetrically at the biceps triceps brachial radialis. Patellar reflexes are 2+ symmetrically. Achilles reflexes are 2 symmetrically. No Forest tremor or Babinski signs are present. No ankle clonus is present. Results - Laboratory Findings CBC and BMP: 02/14/17 04:10 02/14/17 04:10 Abnormal lab findings: Abnormal lab results POC Glucose 101 (58-89) H 02/13/17 21:16 Urine Blood Moderate (Negative) H 02/13/17 18:05 Urine Microscopic RBC 15-30 per hpf (0-3) H 02/13/17 18:05 Urine Microscopic WBC 3-5 per hpf (0-3) H 02/13/17 18:05 Ur Squamous Epith Cells Many per lpf (None-Few) H 02/13/17 18:05
--- NOTE | 2017-02-14 14:25 | Electrocardiograph Report ---
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
[2017-02-14] MEDS: *HR* OxyCODONE/APAP 5/325 TABLET PO PRN (16:38)
[2017-02-15] MEDS: *HR* OxyCODONE/APAP 5/325 TABLET PO PRN ×2 (03:33→09:38)
[2017-02-15 03:52] LABS: Basophils % 0.3 %; Eosinophils # 0.1 K/mcL (0.0-0.6); Eosinophils % 1.6 %; Hematocrit 35.9 % (35.3-44.9); Hemoglobin 12.2 g/dL (11.5-15.4); Immature Granulocytes % 0.1 % (0-4); Lymphocytes # 3.1 K/mcL (0.6-4.6); Mean Corpuscular Hemoglobin 32.2 pg (28.0-33.3); Mean Corpuscular Volume 94.7 fL (83.0-100.0); Mean Platelet Volume 10.3 fL (9.4-12.4); Monocytes # 0.4 K/mcL (0.0-1.3); Monocytes % 5.4 %; Neutrophils # 3.8 K/mcL (1.6-8.9); Platelet Count 220 K/mcL (140-400); Red Blood Count 3.79 M/mcL (3.82-4.97); Red Cell Distribution Width 13.2 % (11.5-14.5); Segmented Neutrophils % 50.6 %
[2017-02-15 04:10] LABS: BUN/Creatinine Ratio 19 (6-26); Blood Urea Nitrogen 15 mg/dL (7-20); Calcium 8.6 mg/dL (8.6-10.8); Carbon Dioxide 25 mEq/L (19-29); Chloride 107 mEq/L (98-109); Glucose 93 mg/dL (70-99); Magnesium 1.9 mg/dL (1.6-2.6); Osmolality,Calculated 291 (280-300); Phosphorous 4.6 mg/dL (2.3-4.7); Potassium 3.8 mEq/L (3.5-4.5); Sodium 140 mEq/L (136-145); eGFR For African Americans > 60 (> 60); eGFR For Non-African Americans > 60 (> 60)
[2017-02-15] MEDS: *HR* Heparin 5,000 UNIT/ML VIAL SQ SCH (05:09)
[2017-02-15] MEDS: Aspirin 81 MG TAB.CHEW PO SCH (09:37)
[2017-02-15] MEDS: Furosemide 20 MG TABLET PO SCH (09:37)
[2017-02-15] MEDS: Loratadine/Pseudophed (12 HR) 1 EACH TABLET PO SCH (09:37)
[2017-02-15] MEDS: Fluticasone Propionate Nasal 50 MCG/SPRAY BOTTLE NS SCH (09:37)
[2017-02-15] MEDS: ALPRAZolam 1 MG TABLET PO PRN (09:38)
[2017-02-15] MEDS: Nicotine 21 MG PATCH.TD24 TD SCH (09:38)
[2017-02-15] MEDS: Budesonide/Formoterol 160/4.5 MDI IH SCH (10:01)
[2017-02-15] MEDS: Albuterol 2.5 MG/3 ML NEBULIZER IH SCH (10:01)
[2017-02-15 11:06] VITALS: BP 106/63
--- NOTE | 2017-02-15 12:50 | Discharge Summary ---
Date of Encounter: 02/15/17 Time of Encounter: 12:44 - Discharge Diagnosis (1) Cerebrovascular accident Priority: Primary Status: Resolved Qualifiers: CVA mechanism: unspecified Qualified Code(s): I63.9 - Cerebral infarction, unspecified (2) [id number] deficiency Priority: Secondary Status: Chronic (3) Chronic obstructive pulmonary disease Priority: Secondary Status: Chronic Qualifiers: COPD type: emphysema Emphysema type: panlobular Qualified Code(s): J43.1 - Panlobular emphysema (4) DVT prophylaxis Priority: Secondary Status: Acute (5) Tobacco abuse Priority: Secondary Status: Chronic (6) Headache Priority: Secondary Status: Resolved Qualifiers: Headache type: unspecified Headache chronicity pattern: chronic headache Intractability: intractable Qualified Code(s): R51 - Headache - Discharge Medications Home Medications: ALPRAZolam [Xanax 1 MG Tablet] 1 mg PO QID 04/03/16 [History] Albuterol Neb [Proventil Neb] 2.5 mg IH TID 04/03/16 [History] Albuterol Sulfate [Proair Respiclick] 2 puff IH Q4H PRN 04/03/16 [History] Budesonide/Formoterol 160/4.5 [Symbicort 160/4.5] 2 puff IH BID 04/03/16 [ History] Citalopram [CeleXA] 40 mg PO DAILY 04/03/16 [History] Fluticasone Propionate Nasal [Flonase] 50 mcg NS BID 04/03/16 [History] Loratadine/Pseudophed (12 HR) [Claritin D (12HR)] 1 tab PO DAILY 04/03/16 [ History] Omeprazole [PriLOSEC] 20 mg PO DAILY 04/03/16 [History] Oxycodone HCl/Acetaminophen [Percocet 5-325 mg Tablet] 1 tab PO TID 04/03/16 [ History] Gabapentin [Neurontin] 300 mg PO QID 01/06/17 [History] Lisinopril [Zestril] 10 mg PO DAILY 01/06/17 [History] Metoclopramide [Reglan] 10 mg PO TID 01/06/17 [History] Aspirin 81 mg PO DAILY 30 Days 01/08/17 [Rx] Furosemide [Lasix] 20 mg PO DAILY 02/13/17 [History] Potassium Chloride [Klor-Con 10] 10 meq PO BID 02/13/17 [History] Prolastin-C 0 mg IV QWEEK 02/13/17 [History] Allergies/Adverse Reactions: Allergies No Known Allergies Allergy (Verified 04/01/15 14:13) Procedures/tests Complete & Pending: Procedures Performed prior 72 hours Category Date Time Status MR head/brain wo con [MR] Routine MRI 02/14/17 08:35 Completed ECG 12 lead ECG [ECG] Routine Y 02/13/17 17:07 Completed Date of admission: 02/13/17 20:27 Primary care physician: Janelle Galan CNP Consults: 02/13/17 20:41 Consult to Speech Therapy [CONS] Routine Comment: Evaluate, develop and implement POC Reason for Consult: failed bedside dysphagia. Call Completed: No 02/13/17 20:43 Consult to Physical Therapy [CONS] Routine Comment: Evaluate, develop and implement POC Reason for Consult: right side weakness 02/13/17 20:44 Consult to Occupational Therapy [CONS] Routine Comment: Evaluate, develop and implement POC Reason for Consult: possible cva 02/13/17 20:53 Consult to Neurology [CONS] Routine Consulting Provider: [facility] Reason for Consult: right side weakness Call Completed: No 02/14/17 16:28 Consult to [facility] [CONS] Routine Reason for SW Consult: advance directives, POA. Discharging clinician: Fatmata Flores Anticipated date of discharge: 02/15/17 - Patient Status Disposition: Home, Self-Care Condition: Good Functional capacity at discharge: independent ambulation Overall status at discharge: patient is back to baseline - Discharge Instructions Follow Up With: Janelle Galan CNP [Primary Care Provider] - 03/02/17 8:30 am Additional Instructions: Please follow up with your primary care physician within one week after your discharge from the hospital. Please follow up with your neurologist within one to two weeks after your discharge from the hospital. Please continue to take all your home medications as prescribed by your primary care physician. - Diet and Activity Activity: resume usual activities as tolerated Diet: low salt diet Hospital course: Ms. Lubin is a 52 year old female past medical history of asthma, COPD, alpha -1 antitrypsin deficiency, DVT and hypertension and anxiety and depression who was admitted for clinical symptoms concerning for CVA. Patient's full neuro work up was negative for any intracranial abnormality/CVA. Neurology evaluation was requested. Patient's symptoms were consistent with conversion reaction vs. malingering as patient was [facility]. At this time she is hemodynamically stable and back to baseline. She was evaluated by physical therapy and outpatient rehab was recommended. Patient reports of already going to outpatient rehab. She will be discharged to home today. Patient demonstrates understanding of her diagnosis and agrees with the discharge care and plan. - Time Spent with Patient Total time spent providing and/or coordinating discharge services: Less than 30 minutes - Constitutional Vitals: Temp Pulse Resp BP Pulse Ox 97.5 F L 79 14 106/63 95 02/15/17 11:05 02/15/17 11:05 02/15/17 11:05 02/15/17 11:05 02/15/17 11:05 General appearance: Present: A&O X 3, no acute distress, answers questions appropriately - Head Head exam: Present: atraumatic, normocephalic - Eye Eye exam: Present: normal appearance, conjuntiva pink, sclera anicteric - Respiratory Respiratory exam: Present: CTAB. Absent: respiratory distress, wheezes - Cardiovascular Cardiovascular exam: Present: RRR, +S1, +S2 - GI/Abdominal GI/Abdominal exam: Present: normal bowel sounds, soft, no peritoneal signs. Absent: distended, tenderness - Extremities Exam Extremities exam: Present: warm, radial pulses palpable and symetrical. Absent : calf tenderness, cyanotic, pedal edema - Neurological Exam Neurological exam: Present: alert, oriented X3. Absent: pronater drift, facial droop - Psychiatric Psychiatric exam: Present: normal affect, normal mood
== END 2017-02-15 14:52 | disposition home or self-care (01) | DRG 880 ==
LOC: EMEROO 16:57 → 3BNU 16:57 → SUATTDRO 20:27
PROVIDERS: ADMIT Internal Medicine; ATTEND Internal Medicine

== ENCOUNTER 2017-12-06 22:17 | Observation (INO) ==
[2017-12-07] MEDS ORDERED: Naloxone 0.4 MG/ML INJ IVP PRN (05:02)
[2017-12-07] MEDS ORDERED: Acetaminophen 325 MG TABLET PO PRN (05:02)
[2017-12-07] MEDS ORDERED: 0.9 % Sodium Chloride w KCl 20 MEQ/1,000 ML MLS IVC SCH (05:15)
--- NOTE | 2017-12-07 05:16 | Internal Med History&Physical ---
Date of Encounter: 12/07/17 Time of Encounter: 04:40 Internal Medicine - H&P: HPI Chief complaint: TIA Admitted From: Hospital to Hospital Transfer Plans for Post Hospital Care: Home History of present illness: Ms. Lubin is a 52 year old female who presents in transfer from [facility] ER earlier this evening. She presented there within 2 1/2 hours of symptom onset of suspected stroke. A stroke alert was called between [facility] and [facility] neurology. Patient was deemed not a candidate for TPA. By that time, her symptoms were resolving and [facility] neurology recommended workup with MRI and further imaging as necessary and neurologic consultation. She was therefore transferred to [facility]. Upon my assessment of the patient, her symptoms have completely resolved except for some minimal expressive aphasia/dysphasia. Her presentation included right- sided numbness and weakness along with severe expressive aphasia. Her symptoms resolved fairly quickly with minimal residual deficit noted now. Patient has had a prior stroke roughly 1 year ago. Her stroke symptoms then were the same presenting symptoms as today, which include the right-sided focal deficits and expressive aphasia. A [facility], she underwent head and neck CTA per [facility] neurology recommendations. and Head and neck vessels appear negative/normal. Regarding her stroke risk factors, she does not smoke, does not have diabetes, and has a negative family history for stroke. She does suffer from high blood pressure, however. Since her stroke last year, she has been on a daily aspirin , but she does not take any lipid-lowering agents. Past Med Surg Social Fam HX - Past Medical History Attestation: Yes The following information was validated with the patient. Source: patient, old records reviewed Medical history: asthma, COPD, DVT, hypertension, other (stroke 2017) Psychiatric history: anxiety, depression - Past Surgical History Surgical History: herniorrhaphy - Social History Smoking Status: Former smoker Smokeless Tobacco Status: No Alcohol use: none Drug use: none Recent Out of Country Travel Within the Last 8 Weeks: No - Family History Mother Living Status: Still Living Hx Family Cardiac Disorders: Yes (HTN) Father Adopted: [place]: DEONTE LUBIN Age: 76 Living Status: Still Living Hx Family Cardiac Disorders: Yes (CHF) Hx Family Respiratory Disorders: Yes (COPD) Hx Family Cancer: No Hx Family GI Disorders: Yes (GERD) Hx Family Genitourinary Disorders: No Hx Family Endocrine Disorder: Yes (DIABETES TYPE 1) Hx Family Musculoskeletal Disorders: No Hx Family Neuromuscular Disorders: No Hx Family Neurologic Disorders: Yes (DEMENTIA) Hx Family HEENT Disorders: No Hx Family Autoimmune Disorders: No Hx Family Reproductive Disorders: No Hx Family Psychosocial Disorders: No Hx Family Medical Disorders: No Internal Medicine - H&P: Meds ALPRAZolam [Xanax 1 MG Tablet] 1 mg PO QID 04/03/16 [History] Albuterol Neb [Proventil Neb] 2.5 mg IH TID 04/03/16 [History] Albuterol Sulfate [Proair Respiclick] 2 puff IH Q4H PRN 04/03/16 [History] Fluticasone Propionate Nasal [Flonase] 50 mcg NS BID 04/03/16 [History] Omeprazole [PriLOSEC] 20 mg PO DAILY 04/03/16 [History] Oxycodone HCl/Acetaminophen [Percocet 5-325 mg Tablet] 1 tab PO QID 04/03/16 [ History] Gabapentin [Neurontin] 300 mg PO QID 01/06/17 [History] Lisinopril [Zestril] 10 mg PO DAILY 01/06/17 [History] Metoclopramide [Reglan] 10 mg PO TID 01/06/17 [History] Aspirin 81 mg PO DAILY 30 Days tab.chew 01/08/17 [Rx] Furosemide [Lasix] 20 mg PO DAILY 02/13/17 [History] Potassium Chloride [Klor-Con 10] 10 meq PO BID 02/13/17 [History] Prolastin-C 0 mg IV QWEEK 02/13/17 [History] 3 Allergy/AdvReac Type Severity Reaction Status Date / Time No Known Allergies Allergy Verified 12/06/17 20:33 - Constitutional Constitutional: no chills, no fever(s), no night sweats - EENT Eyes: no blurry vision, no change in vision Ears: no ear pain, no tinnitus Nose, mouth and throat: no nasal congestion, no nasal discharge, no sinus pressure, no sore throat - Cardiovascular Cardiovascular ROS IM: no chest pain, no dyspnea, no dyspnea on exertion - Respiratory Respiratory: no cough, no dyspnea, no hemoptysis - Gastrointestinal Gastrointestinal: no abdominal pain, no diarrhea, no hematemesis, no hematochezia, no melena, no nausea, no vomiting - Genitourinary Genitourinary: no dysuria, no flank pain, no hematuria - Musculoskeletal Musculoskeletal ROS IM: no arthralgias, no back pain, no muscle cramps, no muscle weakness - Integumentary Integumentary IM: no rash, no jaundice - Neurological Neurological ROS: abnormal speech, focal weakness, no dizziness, no frequent falls, no headache(s) Additional comments: minimal expressive aphasia now and mild weakness to right arm - Psychiatric Psychiatric: no anxiety, no depression - Endocrine Endocrine IM: no polydipsia - Hematologic/Lymphatic Hematologic/Lymphatic: no easy bruising, no lymphadenopathy - Allergic/Immunologic Allergic/Immunologic: no GI upset with certain foods - Constitutional Vitals: Temp Pulse Resp BP Pulse Ox 97.8 F 77 16 160/78 97 12/07/17 03:13 12/07/17 03:13 12/07/17 03:13 12/07/17 03:13 12/07/17 03:13 General appearance: Present: cooperative, A&O X 3, pleasant, no acute distress Exam: minimal expressive aphasia/dysphasia now; otherwise no distress - Head Head exam: Present: atraumatic, normal inspection - Eye Eye exam: Present: EOMI, normal appearance, PERRL. Absent: scleral icterus Pupils: Present: normal accommodation - ENT ENT exam: Present: mucous membranes dry, normal exam - Neck Neck exam general surgery: Present: full ROM, supple. Absent: lymphadenopathy, tenderness, nuchal rigidity, thyromegaly - Expanded Neck Exam Neck exam: Absent: carotid bruit - Respiratory Respiratory exam: Present: CTAB. Absent: chest wall tenderness, rales, rhonchi , wheezes - Cardiovascular Cardiovascular exam: Present: RRR, +S1, +S2, systolic murmur. Absent: diastolic murmur - GI/Abdominal GI/Abdominal exam: Present: normal bowel sounds, soft. Absent: hepatomegaly, rebound, splenomegaly, tenderness - Extremities Exam Extremities exam: Present: full ROM, warm, radial pulses palpable and symmetrical. Absent: calf tenderness, joint swelling, normal capillary refill, pedal edema, tenderness - Back Exam Back exam: Present: normal inspection. Absent: CVA tenderness (L), CVA tenderness (R) - Neurological Exam Neurological exam: Present: alert, CN II-XII intact, oriented X3, speech deficit (minimal expressive aphasia now). Absent: strengths equal and symetr throughout (right side 3-4/5; left 5/5 ), facial droop - Psychiatric Psychiatric exam: Present: normal affect, normal mood - Skin Skin exam: Present: dry, warm. Absent: rash Internal Med - H&P Results - EKG Data -: EKG Interpreted by Myself - EKG Data Prior EKG available for review: no EKG comments: 12/07/17 05:24 Sinus rhythm - Diagnostic Studies Chest x-ray Status: image reviewed by me (negative) - Assessment and plan (1) TIA (transient ischemic attack) Current Visit: No Status: Acute Assessment and plan: 1. Will monitor with Neurochecks. 2. Will order MRI. 3. Consult neurology. 5. Will continue ASA and add STATIN. Qualifiers: Transient cerebral ischemia type: unspecified Qualified Code(s): G45.9 - Transient cerebral ischemic attack, unspecified (2) Hypertension Current Visit: Yes Status: Acute Assessment and plan: 1. Will hold BP meds and allow autoregulation. 2. Monitor BP and treat PRN for SBP > 180. Qualifiers: Hypertension type: essential hypertension Qualified Code(s): I10 - Essential (primary) hypertension (3) DVT prophylaxis Current Visit: No Status: Acute Assessment and plan: 1. Heparin SQ.
[2017-12-07] MEDS: Ondansetron 4 MG/2 ML VIAL IVP PRN ×2 (05:34→13:43)
[2017-12-07] MEDS ORDERED: *HR* Heparin 5,000 UNIT/ML VIAL SQ SCH (06:00)
[2017-12-07 06:11] LABS: Basophils % 0.2 %; Eosinophils # 0.1 K/mcL (0.0-0.6); Hematocrit 43.8 % (35.3-44.9); Hemoglobin 14.7 g/dL (11.5-15.4); Immature Granulocytes % 0.2 % (0-4); Lymphocytes # 2.3 K/mcL (0.6-4.6); Lymphocytes % 21.9 %; Mean Corpuscular HGB Conc 33.6 g/dL (31.6-35.5); Mean Corpuscular Hemoglobin 30.8 pg (28.0-33.3); Mean Corpuscular Volume 91.8 fL (83.0-100.0); Mean Platelet Volume 10.3 fL (9.4-12.4); Monocytes # 0.7 K/mcL (0.0-1.3); Monocytes % 6.7 %; Neutrophils # 7.5 K/mcL (1.6-8.9); Platelet Count 271 K/mcL (140-400); Red Blood Count 4.77 M/mcL (3.82-4.97); Red Cell Distribution Width 13.8 % (11.5-14.5)
[2017-12-07 06:17] LABS: Prothrombin Time 10.7 Seconds (9.4-12.1)
[2017-12-07 06:19] LABS: Activated Partial Thrombo Time 29.3 Seconds (26.0-36.0)
[2017-12-07 06:29] LABS: Alanine Aminotransferase 7 Units/L (7-52); Albumin 3.9 g/dL (3.5-5.7); Albumin/Globulin Ratio 1.4 (1.1-2.2); Alkaline Phosphatase 81 Units/L (34-104); Aspartate Amino Transferase 12 Units/L (13-39); BUN/Creatinine Ratio 13 (6-26); Bilirubin,Total 0.6 mg/dL (0.3-1.0); Blood Urea Nitrogen 9 mg/dL (6-20); Calcium 8.8 mg/dL (8.6-10.3); Carbon Dioxide 25 mEq/L (23-29); Chloride 106 mEq/L (98-107); Chol/HDL Ratio 4.5 (0-4.9); Cholesterol 134 mg/dL (< 200); Globulin 2.7 g/dL (2.4-3.5); Glucose 127 mg/dL (70-105); HDL Cholesterol 30 mg/dL (40-59); LDL Cholesterol,Calculated 82 mg/dL (0-99); Magnesium 2.2 mg/dL (1.6-2.6); Osmolality,Calculated 284 (280-300); Potassium 3.5 mEq/L (3.5-5.1); Sodium 137 mEq/L (136-145); Total Protein 6.6 g/dL (6.4-8.9); Triglycerides 112 mg/dL (< 150); eGFR For African Americans > 60 (> 60); eGFR For Non-African Americans > 60 (> 60)
[2017-12-07] MEDS: Gabapentin 300 MG CAPSULE PO SCH ×2 (07:38→13:43)
[2017-12-07] MEDS ORDERED: *HR* Promethazine 25 MG/ML VIAL IVP ONE (08:43)
[2017-12-07] MEDS ORDERED: Fluticasone Propionate Nasal 50 MCG/SPRAY BOTTLE NS SCH (09:00)
[2017-12-07] MEDS ORDERED: Aspirin 81 MG TAB.CHEW PO SCH (09:00)
--- NOTE | 2017-12-07 09:09 | Neurology - Consult Note ---
<Paul Mireles - Last Filed: 12/07/17 09:56> Date of Encounter: 12/07/17 Time of Encounter: 09:57 Assessment and Plan (1) Stroke-like symptom Current Visit: Yes Status: Acute Neurological exam nonfocal and nonlateralizing. CTA of head and neck negative Patient's symptoms of numbness tingling have resolved. Patient has been admitted for identical symptoms twice last year with extensive neurological workup as mentioned in history of present illness. All workup has been negative for stroke. Patient usually presents with a headache on the left side behind the eye along with right-sided numbness tingling and some dysarthria. unlikely she has stroke/TIA This presentation is more consistent with a complex migraine. Patient is already on a aspirin, statin which we will continue. We will also start patient on Elavil 25 mg at night for migraine prophylaxis. will await MRI results. (2) Complicated migraine Current Visit: Yes Status: Acute plan as above. zofran prn for nausea follow up with neurology outpatient (Dr. Dunlap) History of Present Illness Chief complaint: Right-sided Numbness and tingling HPI: Ms. Lubin is a 52 year old female presented to [facility] emergency department with chief complaint of numbness and tingling. Patient reports that she was taking her son to a baseball game when she had sudden onset of right sided numbness and tingling involving both upper and lower extremities. Along with this patient had a left frontotemporal headache, sharp, throbbing, nonradiating with changes in her left vision described as a barragan curtain over her eye. Along with this she reported slurred speech. Patient presented to [facility] 20 half hours of symptoms. Stroke alert was called and [facility] neurology recommended that patient was not a candidate for TPA as her symptoms on arrival had resolved. Patient had head a neck CTA done which was negative. Patient denied difficulty swallowing, faculty or changes in hearing, tinnitus, difficulty in walking, syncope, confusion, facial drooping. Patient was admitted twice last year for the same symptoms and had extensive neurological workup. At that time there were no evidence of stroke on MRI. Echocardiogram showed an LVEF of 60-65% without wall motion abnormalities, absent PFO, without valvular abnormalities. Patient follows with Dr. Dunlap. She was found to have cervical foraminal stenosis C5-6 on MRI of cervical spine . Underwent EMG which was normal. And followed up with pain management for epidural for cervical radiculopathy. This morning patient reports her headache, numbness tingling symptoms have resolved. She had nausea with dry heaves. She denies photophobia, phonophobia. Past Med Surg Social Fam HX - Past Medical History Medical history: asthma, COPD, DVT, hypertension, other (stroke 2017) Psychiatric history: anxiety, depression - Past Surgical History Surgical History: herniorrhaphy - Social History Smoking Status: Former smoker Smokeless Tobacco Status: No Alcohol use: none Drug use: none - Family History Mother Living Status: Still Living Hx Family Cardiac Disorders: Yes (HTN) Father Adopted: [place]: DEONTE LUBIN Age: 76 Living Status: Still Living Hx Family Cardiac Disorders: Yes (CHF) Hx Family Respiratory Disorders: Yes (COPD) Hx Family Cancer: No Hx Family GI Disorders: Yes (GERD) Hx Family Genitourinary Disorders: No Hx Family Endocrine Disorder: Yes (DIABETES TYPE 1) Hx Family Musculoskeletal Disorders: No Hx Family Neuromuscular Disorders: No Hx Family Neurologic Disorders: Yes (DEMENTIA) Hx Family HEENT Disorders: No Hx Family Autoimmune Disorders: No Hx Family Reproductive Disorders: No Hx Family Psychosocial Disorders: No Hx Family Medical Disorders: No Medications and Allergies ALPRAZolam [Xanax 1 MG Tablet] 1 mg PO QID 04/03/16 [History] Albuterol Neb [Proventil Neb] 2.5 mg IH TID 04/03/16 [History] Albuterol Sulfate [Proair Respiclick] 2 puff IH Q4H PRN 04/03/16 [History] Fluticasone Propionate Nasal [Flonase] 50 mcg NS BID 04/03/16 [History] Omeprazole [PriLOSEC] 20 mg PO DAILY 04/03/16 [History] Gabapentin [Neurontin] 300 mg PO QID 01/06/17 [History] Lisinopril [Zestril] 10 mg PO DAILY 01/06/17 [History] Metoclopramide [Reglan] 10 mg PO TID 01/06/17 [History] Aspirin 81 mg PO DAILY 30 Days tab.chew 01/08/17 [Rx] Furosemide [Lasix] 20 mg PO DAILY 02/13/17 [History] Potassium Chloride [Klor-Con 10] 10 meq PO BID 02/13/17 [History] Prolastin-C 0 mg IV QWEEK 02/13/17 [History] Budesonide/Formoterol 160/4.5 [Symbicort 160/4.5] 2 puff IH BIDR 12/07/17 [ History] OxyCODONE/APAP 7.5/325 [Percocet 7.5/325 MG] 1 tab PO QID 12/07/17 [History] 3 Allergy/AdvReac Type Severity Reaction Status Date / Time No Known Allergies Allergy Verified 12/06/17 20:33 All Systems: The remainder of the systems were reviewed and are negative Review of Systems: Constitutional: Denies fever, chills HEENT: Reports headache, vision changes. Denies neck pain, sore throat, rhinorrhea Heart: Denies chest pain palpitations Lungs: Denies shortness of breath cough Abdomen: Denies abdominal pain nausea vomiting diarrhea Back: Denies back pain Kidney: Denies dysuria, hematuria Skin: denies rash Extremities: Denies swelling, pain Neuro: as per HPI Physical Examination - Vital Signs Vital Signs: Initial Vital Signs Temp Pulse Resp BP Pulse Ox 97.7 F 71 16 156/87 98 12/07/17 01:08 12/07/17 01:08 12/07/17 01:08 12/07/17 01:08 12/07/17 01:08 - Exam Exam: General: without distress HEENT: Head atraumatic, normocephalic, EOMI, PERRL, neck nontender to palpation , absent lymphadenopathy, Moist Mucous Membranes, Heart: Regular rate and rhythm with no murmur Lungs: mild wheezing b/l Abdomen: Soft nontender, nondistended positive bowel sounds Skin: warm and dry Extremities: Absent pedal edema, Vascular: Pedal and radial pulses 2 out of 4 - Neurologic Sensorimotor examination: intact Detailed motor examination: full strength in all major muscle groups Motor examination - right side: 5/5: deltoids, biceps, triceps, wrist flexion, wrist extension, land leases and rentals manager, hip flexors, tibialis Anterior, quadriceps, toe extension (EHL), plantarflexion Motor examination - left side: 5/5: deltoids, biceps, triceps, wrist flexion, wrist extension, hip flexors, land leases and rentals manager, quadriceps, tibialis Anterior, toe extension (EHL), plantarflexion Detailed sensory examination: intact Reflex and gait examination: intact Reflexes: Biceps: 2+, Triceps: 2+, Brachioradialis: 2+, Patella: 2+, Achilles: 2 + Mental Status Examination: awake, alert, oriented to person, oriented to place, oriented to time, follows commands appropriately, answers questions appropriately, no agnosia, no aphasia, no aproxia Cranial nerve examination: PERRL, EOMI, visual hart intact, sensory to face intact, mastication intact, no facial asymmetry is present, no dysarthria, hearing is intact symmetrically, soft palate elevates bilaterally upon phonation , flexes SCM and trapezius muscles symmetrically with full power, tongue protrudes midline, no atrophy or facial fasiculations present Cerebellar examination: no dysmetria, performs finger to nose and heel to lopez symmetrically without ataxia, no gait ataxia, no truncal ataxia, no difficulty with rapid alternating movements Results - Laboratory Findings CBC and BMP: 12/07/17 05:44 12/07/17 05:44 Abnormal lab findings: Abnormal lab results Glucose 127 mg/dL (70-105) H 12/07/17 05:44 AST 12 Units/L (13-39) L 12/07/17 05:44 HDL Cholesterol 30 mg/dL (40-59) L 12/07/17 05:44 Consult Discharge Plan - Plan Referrals: Janelle Galan, WELD TECHNICIAN [Primary Care Provider] - <Dangelo Ellington I - Last Filed: 12/07/17 11:47> Date of Encounter: 12/07/17 Assessment and Plan (1) Complicated migraine Current Visit: Yes Status: Acute Pt was seen and examined, my medical decision was reviewed with the Resident Physician, I agree with the documented findings, disposition and treatment plas as described except to the extent set forth below. Though patient had some risk factors for the stroke but presentation does not seems to be typical she had multiple presentation with similar symptoms already had a complete workup has been negative. From a stroke prevention suggest continue on statin as well as aspirin on a regular basis. At this time recommend preventative treatment with amitriptyline 25 mg at that time and if not perhaps she would be started on Topamax or some other preventive medication as an outpatient. Currently she is stable asymptomatic and no focal deficits on neurological examination. Patient can be discharged from neurology standpoint with follow- up in neurology clinic in 3-[address] Fabi Ellington MD History of Present Illness HPI: Ms. Lubin is a 52 year old female All Systems: The remainder of the systems were reviewed and are negative Physical Examination - Vital Signs Vital Signs: Initial Vital Signs Temp Pulse Resp BP Pulse Ox 97.7 F 71 16 156/87 98 12/07/17 01:08 12/07/17 01:08 12/07/17 01:08 12/07/17 01:08 12/07/17 01:08 Results - Laboratory Findings CBC and BMP: 12/07/17 05:44 12/07/17 05:44 Abnormal lab findings: Abnormal lab results Glucose 127 mg/dL (70-105) H 12/07/17 05:44 AST 12 Units/L (13-39) L 12/07/17 05:44 HDL Cholesterol 30 mg/dL (40-59) L 12/07/17 05:44
[2017-12-07] MEDS: Albuterol 2.5 MG/3 ML NEBULIZER IH SCH ×2 (10:30→15:56)
[2017-12-07 11:18] VITALS: BP 173/82
--- NOTE | 2017-12-07 15:10 | Discharge Summary ---
- NOTES TO OUTPATIENT PROVIDER Notes to Outpatient Provider: Patient placed on Elavil 25mg for migraine prophylaxis Orders not resulted at time of discharge: Pending orders 12/08/17 04:00 CBC [Complete Blood Count] [HEME] AM 0400 Chem 7 [Basic Metabolic Panel] AM 0400 Date of Encounter: 12/07/17 Time of Encounter: 15:08 - Discharge Diagnosis (1) Complicated migraine Priority: Primary Status: Acute Comments: 1 patient placed on Elavil per neurology. Patient will follow-up with neurology as outpatient (2) Stroke-like symptom Priority: Primary Status: Acute Comments: 1 neurology did see patient recommending to continue aspirin and statin adding Elavil for migraine prophylaxis follow-up with neurology as outpatient as well as PCP (3) Hypertension Priority: Secondary Status: Acute Comments: 1 resume home medications Qualifiers: Hypertension type: essential hypertension Qualified Code(s): I10 - Essential (primary) hypertension Hospital course: Ms. Lubin is a 52 year old female past medical history of asthma COPD DVT hypertension stroke 2017. Patient originally presented to [facility] ER after experiencing symptoms of right-sided numbness weakness severe expresses aphasia. A stroke alert was called between [facility] and [facility] neurology. Patient was deemed not a candidate for TPA. She underwent a neck CTA per [facility] neurology recommendations head and neck vessels appear negative normal. Her symptoms resolved and [facility] neurology recommended workup with MRI and further imaging and neurological consultation. She was transferred to [facility]. She underwent brain MRI which was normal. She was seen by neurology who felt her symptoms were more consistent with a complex migraine. Recommending patient be started on Elavil 25 mg at at bedtime as well as continue with aspirin and statin. Okay to discharge per neurology standpoint Patient will follow-up with neurology as outpatient. Patient lab work is stable. Vital signs are stable her blood pressure is slightly elevated however her home medications have been held. Advised patient to resume her home medications as well as a for prescription for the Elavil. Advised patient to follow-up with PCP as well as neurology. Patient verbalized understanding. Patient is ready for discharge Discharge discussed with: patient - Time Spent with Patient Total time spent providing and/or coordinating discharge services: - Discharge Medications Prescriptions: Ondansetron ODT [Zofran ODT] 4 mg SL Q6HR #30 tab.rapdis Amitriptyline [Elavil] 25 mg PO HS #30 tablet Atorvastatin [Lipitor] 40 mg PO HS #30 tablet Home Medications: ALPRAZolam [Xanax 1 MG Tablet] 1 mg PO QID 04/03/16 [History] Albuterol Neb [Proventil Neb] 2.5 mg IH TID 04/03/16 [History] Albuterol Sulfate [Proair Respiclick] 2 puff IH Q4H PRN 04/03/16 [History] Fluticasone Propionate Nasal [Flonase] 50 mcg NS BID 04/03/16 [History] Omeprazole [PriLOSEC] 20 mg PO DAILY 04/03/16 [History] Gabapentin [Neurontin] 300 mg PO QID 01/06/17 [History] Lisinopril [Zestril] 10 mg PO DAILY 01/06/17 [History] Metoclopramide [Reglan] 10 mg PO TID 01/06/17 [History] Aspirin 81 mg PO DAILY 30 Days tab.chew 01/08/17 [Rx] Furosemide [Lasix] 20 mg PO DAILY 02/13/17 [History] Potassium Chloride [Klor-Con 10] 10 meq PO BID 02/13/17 [History] Prolastin-C 0 mg IV QWEEK 02/13/17 [History] Amitriptyline [Elavil] 25 mg PO HS #30 tablet 12/07/17 [Rx] Atorvastatin [Lipitor] 40 mg PO HS #30 tablet 12/07/17 [Rx] Budesonide/Formoterol 160/4.5 [Symbicort 160/4.5] 2 puff IH BIDR 12/07/17 [ History] Ondansetron ODT [Zofran ODT] 4 mg SL Q6HR #30 tab.rapdis 12/07/17 [Rx] OxyCODONE/APAP 7.5/325 [Percocet 7.5/325 MG] 1 tab PO QID 12/07/17 [History] Allergies/Adverse Reactions: 3 Allergy/AdvReac Type Severity Reaction Status Date / Time No Known Allergies Allergy Verified 12/06/17 20:33 Date of admission: 12/07/17 00:48 Primary care physician: Janelle Galan CNP Consults: 12/07/17 05:05 Consult to Physician [CONS] Routine Consulting Provider: Luis Dunlap Reason for Consult: TIA, recent stroke Call Completed: No Discharging clinician: Su Henley Anticipated date of discharge: 12/07/17 - Constitutional Vitals: Temp Pulse Resp BP Pulse Ox 97.9 F 82 16 173/82 97 12/07/17 11:17 12/07/17 11:17 12/07/17 11:17 12/07/17 11:17 12/07/17 13:06 General appearance: Present: cooperative, A&O X 3, pleasant, no acute distress - Head Head exam: Present: atraumatic, normocephalic - Eye Eye exam: Present: PERRL, conjuntiva pink, sclera anicteric Pupils: Present: PERRL - Neck Neck exam general surgery: Present: supple, trachea midline. Absent: lymphadenopathy - Respiratory Respiratory exam: Present: CTAB. Absent: accessory muscle use, rales, rhonchi, wheezes - Cardiovascular Cardiovascular exam: Present: RRR, +S1, +S2. Absent: diastolic murmur, gallop, rubs, systolic murmur - GI/Abdominal GI/Abdominal exam: Present: normal bowel sounds, soft, no peritoneal signs. Absent: distended, tenderness - Extremities Exam Extremities exam: Present: warm, radial pulses palpable and symmetrical. Absent : calf tenderness, cyanotic, pedal edema - Neurological Exam Neurological exam: Present: CN II-XII intact, oriented X3, no focal deficits. Absent: pronater drift, facial droop, speech deficit - Skin Skin exam: Present: dry, intact - Patient Status Disposition: Home, Self-Care Condition: Good Functional capacity at discharge: independent ambulation Overall status at discharge: patient is back to baseline - Discharge Instructions Instructions: Chronic Hypertension (DC) Follow Up With: Janelle Galan CNP [Primary Care Provider] - Luis Dunlap MD [Partnered Physician] - 12/24/17 9:00 am - Diet and Activity Activity: resume usual activities as tolerated Diet: regular diet
--- NOTE | 2017-12-14 08:31 | Electrocardiograph Report ---
[place] [id number] Test Date: 2017-12-07 Pat Name: Miguel Lubin Department: 113 Room: 3B23 Gender: F Pan Shaker: : 1965 Requested By: Paresh Cancino MD Order Number: [id number] Reading MD: Jackson Mcdaniel Measurements Intervals [place] Rate: 62 P: 29 ID: [id number] QRS: 52 QRSD: 99 T: 61 QT: 432 QTc: 436 Interpretive Statements SINUS RHYTHM Electronically Signed On 12-14-2017 8:30:06 EDT by Jackson Mcdaniel
== END 2017-12-07 14:14 | disposition home or self-care (01) ==
LOC: 3BNU
PROVIDERS: ADMIT Pediatrics; ATTEND Registered Nurse